=== PATIENT | female | born 1930 | race Caucasian/White ===

== ENCOUNTER → 2016-11-28 | Outpatient (CLI) | payer MEDICARE, BC ==
[2016-11-28 10:38] LABS: ABSOLUTE EOSINOPHILS # (AUTO) 0.1 10^3/uL (0.0-0.6); ABSOLUTE MONOCYTES (AUTO) 0.4 10^3/uL (0.1-1.4); ABSOLUTE NEUT (AUTO) 3.5 10^3/uL (1.7-8.2); BASOPHILS % (AUTO) 0.5 % (0-2); EOSINOPHILS % (AUTO) 2.2 % (0-6); HEMATOCRIT 42.6 % (36.0-47.0); HEMOGLOBIN 14.2 g/dL (12.0-15.5); LYMPHOCYTES % (AUTO) 19.2 % (13-45); MEAN CORPUSCULAR HEMOGLOBIN 31.9 pg (27.0-33.4); MEAN CORPUSCULAR HGB CONC 33.4 g/dL (32.0-36.0); MEAN CORPUSCULAR VOLUME 95 fl (80-97); MONOCYTES % (AUTO) 8.7 % (3-13); RED BLOOD COUNT 4.47 10^6/uL (3.72-5.28); SEGMENTED NEUTROPHILS % (AUTO) 69.4 % (42-78)
[2016-11-28 11:02] LABS: ALANINE AMINOTRANSFERASE 33 U/L (9-52); ALBUMIN 3.8 g/dL (3.5-5.0); ALKALINE PHOSPHATASE 80 U/L (38-126); ANION GAP 9 (5-19); ASPARTATE AMINO TRANSFERASE 33 U/L (14-36); BILIRUBIN,DIRECT 0.3 mg/dL (0.0-0.4); BILIRUBIN,TOTAL 0.9 mg/dL (0.2-1.3); BLOOD UREA NITROGEN 20 mg/dL (7-20); CALCIUM 10.2 mg/dL (8.4-10.2); CARBON DIOXIDE 25 mmol/L (22-30); CHLORIDE 109 mmol/L (98-107); GLUCOSE 94 mg/dL (75-110); POTASSIUM 3.9 mmol/L (3.6-5.0); SODIUM 143.4 mmol/L (137-145)
== END ==
LOC: OD 09:26
PROVIDERS: ATTEND Family Medicine Geriatric Medicine
DX: M47.24 Other spondylosis with radiculopathy, thoracic region (principal); I10 Essential (primary) hypertension; K21.0 Gastro-esophageal reflux disease with esophagitis; Z79.899 Other long term (current) drug therapy
CPT/HCPCS: 36415; 80053; 85025

== ENCOUNTER → 2017-01-01 | Outpatient (CLI) | payer MEDICARE, BC ==
--- NOTE | 2017-01-01 15:15 | RADIOLOGY REPORT (SQ) ---
EXAM DESCRIPTION: VENOUS BILATERAL LOWER COMPLETED DATE/TIME: 01/01/2017 2:39 pm REASON FOR STUDY: BLE PAIN, SWELLING M79.604 PAIN IN RIGHT LEG COMPARISON: None. TECHNIQUE: Dynamic and static marroquin scale and color images acquired of both lower extremity venous sy stems. Selected spectral images acquired with additional compression and augmentation maneuvers. Imag es stored on PACS. LIMITATIONS: None. FINDINGS: RIGHT LEG COMMON FEMORAL AND FEMORAL: Normal phasicity, compression and augmentation. No visualized echogenic m aterial on marroquin scale. No defects on color images. POPLITEAL: Normal compression and augmentation. No visualized echogenic material on marroquin scale. No de fects on color images. CALF VESSELS: Normal compression and augmentation. No visualized echogenic material on marroquin scale. No defects on color image. GSV AND SSV: Normal compression. No visualized echogenic material on marroquin scale. No defects on color images. ANY DEEP VENOUS INSUFFICIENCY: Not evaluated. ANY EVIDENCE OF POPLITEAL CYST: No. OTHER: No other significant finding. LEFT LEG COMMON FEMORAL AND FEMORAL: Normal phasicity, compression and augmentation. No visualized echogenic m aterial on marroquin scale. No defects on color images. POPLITEAL: Normal compression and augmentation. No visualized echogenic material on marroquin scale. No de fects on color images. CALF VESSELS: Normal compression and augmentation. No visualized echogenic material on marroquin scale. No defects on color images. GSV AND SSV: Normal compression. No visualized echogenic material on marroquin scale. No defects on color images. ANY DEEP VENOUS INSUFFICIENCY: Not evaluated. ANY EVIDENCE POPLITEAL CYST: No. OTHER: No other significant finding. IMPRESSION: NO EVIDENCE DVT OR SVT IN EITHER LEG. TECHNICAL DOCUMENTATION: JOB ID: [id number] [employer]- All Rights Reserved
== END ==
LOC: SP 13:48
PROVIDERS: ATTEND Internal Medicine
DX: M79.604 Pain in right leg (principal); M79.605 Pain in left leg; M79.89 Other specified soft tissue disorders
CPT/HCPCS: 93970

== ENCOUNTER 2017-01-03 18:22 | Emergency (ER) | payer MEDICARE, BC ==
--- NOTE | 2017-01-03 18:54 | ER Document Report ---
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 Patient was recently diagnosed with bilateral lower extremity cellulitis and placed on oral antibiotics (Augmentin) by Dr. Andrade. A venous Doppler as an outpatient performed 2 days ago showed no evidence of DVT. Patient presents today with concerns for worsening rash. The patient and the patient's friend states that the rash seems to have spread to the chest area and underneath the right breast. Patient denies any significant pain or swelling. Patient states that the left lower extremity has actually improved over the last day. TRAVEL OUTSIDE OF THE [place] IN LAST 30 DAYS: No - HPI Onset: Last week Onset/Duration: Gradual Quality of pain: No pain Severity: None Pain Level: Denies Associated Symptoms: None. denies: Chest pain, Fever, Shortness of breath Exacerbated by: Denies Relieved by: Denies Similar symptoms previously: No Recently seen / treated by doctor: No - Related Data Smoking: Non-smoker Frequency of alcohol use: None Drug Abuse: None Allergies/Adverse Reactions: Sulfa (Sulfonamide Antibiotics) Allergy (Verified 01/03/17 18:24) Past Medical History - General Information source: Patient - Social History Cigarette use (# per day): No Chew tobacco use (# tins/day): No Frequency of alcohol use: None Drug Abuse: None Lives with: Family Family history: None - Past Medical History Cardiac Medical History: Reports: Hx Hypertension Pulmonary Medical History: Reports: None EENT Medical History: Reports: None Neurological Medical History: Reports: Hx Cerebrovascular Accident Endocrine Medical History: Reports: None Renal/ Medical History: Reports: None. Denies: Hx Peritoneal Dialysis Malignancy Medical History: Reports: None GI Medical History: Reports: None Musculoskeltal Medical History: Reports Other Skin Medical History: Reports None Psychiatric Medical History: Reports: None Traumatic Medical History: Reports: None Infectious Medical History: Reports: None Surgical Hx: Other - noncontributory Review of Systems - Review of Systems Constitutional: denies: Chills, Fever EENT: No symptoms reported Cardiovascular: No symptoms reported Respiratory: No symptoms reported Gastrointestinal: No symptoms reported Genitourinary: No symptoms reported Female Genitourinary: No symptoms reported Musculoskeletal: See HPI Skin: See HPI Hematologic/Lymphatic: No symptoms reported Neurological/Psychological: No symptoms reported Physical Exam - Vital signs Vitals: Temp Pulse Resp BP Pulse Ox 98.4 F 81 18 175/79 H 97 01/03/17 18:24 01/03/17 18:24 01/03/17 18:24 01/03/17 18:24 01/03/17 18:24 Notes: Physical exam: GENERAL: 86-year-old female, alert and oriented 3, no acute distress. HEAD: Atraumatic, normocephalic. EYES: Pupils equal round and reactive to light, extraocular movements intact, sclera anicteric, conjunctiva are normal. ENT: TMs normal, nares patent, oropharynx clear without exudates. Moist mucous membranes. NECK: Normal range of motion, supple without lymphadenopathy or JVD. LUNGS: Breath sounds clear to auscultation bilaterally and equal. No wheezes rales or rhonchi. HEART: Regular rate and rhythm without murmurs, rubs or gallops. ABDOMEN: Soft, normoactive bowel sounds. No tenderness to palpation. No guarding, no rebound. No masses appreciated. EXTREMITIES: Patient does have evidence of chronic peripheral vascular disease of the lower extremities with some chronic edema. There is erythema to bilateral lower extremities with slight weeping from the left lower extremity. There is no significant increase in warmth of the lower extremities and there is no tenderness to palpation. Distal cap refill is good. NEUROLOGICAL: Cranial nerves II through XII grossly intact. Normal speech, normal gait. PSYCH: Normal mood, normal affect. SKIN: Patient does have maculopapular lesions to the right chest which goes across the chest and crosses midline. There is no erythema suggestive of cellulitis. The patient does have an erythematous plaque underneath the right breast that looks more fungal in nature. Course - Re-evaluation Re-evalutation: 01/03/17 20:49 Note: The patient's lower extremity skin changes look mostly chronic. She was placed on antibiotics [address] ANDRADE she has not had any. Fever or increased pain. The white blood count is normal. They were concerned because the rash seemed to spread. No rashes in the area of the chest that would be exposed to light she was out at a green party the other day and I am wondering whether she has got some sort of sun exposure dermatitis. I have asked her to follow-up with her customer development representative. There is one area that looks itchy and red underneath the right breast which is in the area that is mostly moist and looks more fungal and have given her cream. - Vital Signs Vital signs: Temp Pulse Resp BP Pulse Ox 98.4 F 67 19 150/71 H 99 01/03/17 18:24 01/03/17 20:41 01/03/17 20:41 01/03/17 20:41 01/03/17 20:41 - Laboratory Result Diagrams: 01/03/17 19:02 01/03/17 19:02 Laboratory results interpreted by me: 01/03/17 19:02 Lymphocytes % 12.3 L Doctor's Discharge - Discharge Clinical Impression: Cellulitis Qualifiers: Site of cellulitis of extremity: lower extremity Laterality: unspecified laterality Condition: Stable Disposition: HOME, SELF-CARE Additional Instructions: Far as the cellulitis to the lower extremities, continue with the antibiotics that Dr. Andrade has you on. It is okay to bathe and ipsom salts. Hibiclens soap once or twice a week is okay as well As far as the rash underneath the right breast: I wrote for an antifungal cream. You can apply this twice daily. I would like you to follow-up with Dr. HARVEY the customer development representative. Call the office on Thursday. Return to the emergency room for any concerns that the rash is getting worse. Prescriptions: Butenafine HCl [Lotrimin Ultra 1% Cream] 1 applic TP DAILY #1 tube
[2017-01-03 19:16] LABS: ABSOLUTE EOSINOPHILS # (AUTO) 0.2 10^3/uL (0.0-0.6); ABSOLUTE LYMPHOCYTES (AUTO) 0.6 10^3/uL (0.5-4.7); ABSOLUTE MONOCYTES (AUTO) 0.6 10^3/uL (0.1-1.4); ABSOLUTE NEUT (AUTO) 3.8 10^3/uL (1.7-8.2); BASOPHILS % (AUTO) 0.9 % (0-2); EOSINOPHILS % (AUTO) 2.9 % (0-6); HEMOGLOBIN 14.4 g/dL (12.0-15.5); HGB HCT DIFFERENCE 0.2; LYMPHOCYTES % (AUTO) 12.3 % (13-45); MEAN CORPUSCULAR HEMOGLOBIN 32.1 pg (27.0-33.4); MEAN CORPUSCULAR HGB CONC 33.5 g/dL (32.0-36.0); MEAN CORPUSCULAR VOLUME 96 fl (80-97); MONOCYTES % (AUTO) 10.8 % (3-13); RED BLOOD COUNT 4.48 10^6/uL (3.72-5.28); RED CELL DISTRIBUTION WIDTH 12.6 % (11.5-14.0); SEGMENTED NEUTROPHILS % (AUTO) 73.1 % (42-78); WHITE BLOOD COUNT 5.2 10^3/uL (4.0-10.5)
[2017-01-03 19:25] LABS: PROTHROMBIN TIME 13.4 SEC (11.4-15.4)
[2017-01-03 19:32] LABS: ANION GAP 8 (5-19); BLOOD UREA NITROGEN 19 mg/dL (7-20); CALCIUM 10.1 mg/dL (8.4-10.2); CARBON DIOXIDE 27 mmol/L (22-30); CHLORIDE 105 mmol/L (98-107); CREATININE RESULT 0.56 mg/dL (0.52-1.25); GLUCOSE 96 mg/dL (75-110); POTASSIUM 4.3 mmol/L (3.6-5.0); SODIUM 140.2 mmol/L (137-145)
[2017-01-03 20:45] VITALS: BP 150/71
== END 2017-01-03 20:41 | disposition home or self-care (01) ==
LOC: ER 18:22
DX: L03.116 Cellulitis of left lower limb (principal); L03.115 Cellulitis of right lower limb; L98.9 Disorder of the skin and subcutaneous tissue, unspecified; I10 Essential (primary) hypertension; I73.9 Peripheral vascular disease, unspecified; R60.0 Localized edema; Z88.2 Allergy status to sulfonamides
CPT/HCPCS: 36415; 80048; 85025; 85610; 99283

== ENCOUNTER → 2017-03-31 | Outpatient (CLI) | payer MEDICARE, BC ==
[2017-03-31 10:43] LABS: ALANINE AMINOTRANSFERASE 33 U/L (9-52); ANION GAP 5 (5-19); ASPARTATE AMINO TRANSFERASE 31 U/L (14-36); BLOOD UREA NITROGEN 22 mg/dL (7-20); CALCIUM 10.3 mg/dL (8.4-10.2); CARBON DIOXIDE 28 mmol/L (22-30); CHLORIDE 108 mmol/L (98-107); CREATININE RESULT 0.62 mg/dL (0.52-1.25); GLUCOSE 92 mg/dL (75-110); MAGNESIUM 2.2 mg/dL (1.6-2.3); POTASSIUM 4.1 mmol/L (3.6-5.0); SODIUM 141.2 mmol/L (137-145)
== END ==
LOC: OD 09:16
PROVIDERS: ATTEND Family Medicine Geriatric Medicine
DX: I10 Essential (primary) hypertension (principal); N39.41 Urge incontinence; E87.6 Hypokalemia; Z79.899 Other long term (current) drug therapy
CPT/HCPCS: 36415; 80048; 83735; 84450; 84460

== ENCOUNTER 2017-05-15 10:20 | Emergency (ER) | payer MEDICARE, BC ==
[2017-05-15] MEDS ORDERED: MUPIROCIN 2% OINTMENT 22 GM TP ONE (11:37)
--- NOTE | 2017-05-15 11:43 | ER Document Report ---
HPI - HPI Patient complains to provider of: 2 open sores to right leg Onset: Other - This week Onset/Duration: Gradual Quality of pain: No pain, Burning Severity: None Pain Level: Denies Associated Symptoms: Other - Open sores to the front and side of right leg Exacerbated by: Denies Relieved by: Denies Similar symptoms previously: Yes Recently seen / treated by doctor: Yes - ROS ROS below otherwise negative: Yes - CONSTITUTIONAL Constitutional: DENIES: Fever, Chills - EENT EENT: DENIES: Sore Throat, Ear Pain, Eye problems - NEURO Neurology: DENIES: Headache, Weakness, Vision blurred, Dizzinesss / Vertigo - CARDIOVASCULAR Cardiovascular: DENIES: Chest pain - RESPIRATORY Respiratory: DENIES: Trouble Breathing, Coughing - GASTROINTESTINAL Gastrointestinal: DENIES: Abdominal Pain, Black / Bloody Stools - URINARY Urinary: DENIES: Dysuria, Urgency, Frequency - REPRODUCTIVE Reproductive: REPORTS: Postmenopausal. DENIES: :, Abnormal bleeding / discharge - MUSCULOSKELETAL Musculoskeletal: REPORTS: Extremity pain - Open sores to the front and ba, Swelling - Pedal edema - DERM Skin Color: Normal Skin Problems: Open to Air - Open sores to front and side of right leg please address as instructed Past Medical History - General Information source: Patient - Social History Smoking Status: Never Smoker Chew tobacco use (# tins/day): No Smoking Education Provided: No Frequency of alcohol use: Rare Drug Abuse: None Lives with: Alone Family History: Reviewed & Not Pertinent Patient has suicidal ideation: No Patient has homicidal ideation: No - Past Medical History Cardiac Medical History: Reports: Hx Hypercholesterolemia, Hx Hypertension, Hx Peripheral Vascular Disease, Other - Venous insufficiency Pulmonary Medical History: Reports: None EENT Medical History: Reports: Eyes - Cataracts Neurological Medical History: Reports: Hx Cerebrovascular Accident Endocrine Medical History: Reports: None Renal/ Medical History: Reports: None Malignancy Medical History: Reports: None GI Medical History: Reports: None Musculoskeltal Medical History: Reports Hx Arthritis, Reports Hx Musculoskeletal Deformity Skin Medical History: Reports None Psychiatric Medical History: Reports: None Traumatic Medical History: Reports: None Infectious Medical History: Reports: None Past Surgical History: Reports: Hx Cholecystectomy, Hx Hysterectomy, Hx Orthopedic Surgery - bilat knee replacement, Other - Cataracts - Immunizations Hx Diphtheria, Pertussis, Tetanus Vaccination: Yes Vertical Provider Document - CONSTITUTIONAL Agree With Documented VS: Yes Exam Limitations: No Limitations General Appearance: WD/WN, No Apparent Distress - INFECTION CONTROL TRAVEL OUTSIDE OF THE [place] IN LAST 30 DAYS: No - HEENT HEENT: Atraumatic, Normal ENT Exam, Normocephalic - NECK Neck: Normal Inspection, Supple - RESPIRATORY Respiratory: Breath Sounds Normal, No Respiratory Distress O2 Sat by Pulse Oximetry: 96 - CARDIOVASCULAR Cardiovascular: Regular Rate, Regular Rhythm - GI/ABDOMEN Gastrointestinal: Abdomen Non-Tender, No Organomegaly, Normal Bowel Sounds - MUSCULOSKELETAL/EXTREMETIES Musculoskeletal/Extremeties: MAEW, FROM, Tender, Edema - Bilateral pedal edema - NEURO Level of Consciousness: Awake, Alert, Appropriate - DERM Integumentary: Warm, Dry, No Rash. negative: Laceration - Open area to the front and back of the right lower leg Course - Re-evaluation Re-evalutation: 05/15/17 11:43 Patient had her 2 open wounds cleaned with soap rinsed with saline patted dry and Bactroban applied to both. - Vital Signs Vital signs: Temp Pulse Resp BP Pulse Ox 97.9 F 84 19 165/79 H 96 05/15/17 10:29 05/15/17 10:29 05/15/17 10:29 05/15/17 10:29 05/15/17 10:29 Discharge - Discharge Clinical Impression: Open sores to right leg Condition: Stable Disposition: HOME, SELF-CARE Instructions: Family Physicians / Practices Additional Instructions: Please careful your open wounds as instructed below. SOAP CLEANSING: Gently wash the wound daily using a mild soap (like Ivory, Phisoderm, Neutrogena). Use warm water, rubbing gently until all debris, ooze, and crusting have been washed from the wound. Allow to dry briefly (about 10 minutes) after cleaning. Repeat this cleansing at least three times a day for the first two days and then once or twice a day. Bactroban Ointment Bactroban is very effective against the germs that cause infection within the skin. It's useful for impetigo and other superficial infections. Deeper infections require antibiotics by mouth or by shot. Apply the medicine three times a day for one week, or longer if your doctor has advised it. Stop the medicine and call your doctor if you develop large blisters, severe itching, increasing pain, swelling, fever, or spreading redness. FOLLOW-UP CARE: If you have been referred to a physician for follow-up care, call the physician s office for an appointment as you were instructed or within the next two days. If you experience worsening or a significant change in your symptoms, notify the physician immediately or return to the Emergency Department at any time for re-evaluation. Referrals: EILEEN AYALA MD [Primary Care Provider] - Follow up as needed
[2017-05-15 12:23] VITALS: BP 159/81
== END 2017-05-15 12:24 | disposition home or self-care (01) ==
LOC: ER 10:20
DX: L98.8 Other specified disorders of the skin and subcutaneous tissue (principal)
CPT/HCPCS: 99283; A9270; J3490

== ENCOUNTER → 2017-07-09 | Outpatient (CLI) | payer MEDICARE, BC ==
[2017-07-10 12:20] LABS: ANION GAP 10 (5-19); BLOOD UREA NITROGEN 19 mg/dL (7-20); CALCIUM 10.5 mg/dL (8.4-10.2); CARBON DIOXIDE 28 mmol/L (22-30); CHLORIDE 106 mmol/L (98-107); GLUCOSE 93 mg/dL (75-110); POTASSIUM 4.1 mmol/L (3.6-5.0); SODIUM 143.6 mmol/L (137-145)
== END ==
LOC: OD 10:33
PROVIDERS: ATTEND Family Medicine Geriatric Medicine
DX: E83.52 Hypercalcemia (principal); Z79.899 Other long term (current) drug therapy
CPT/HCPCS: 36415; 80048; 83970

== ENCOUNTER → 2017-07-23 | Outpatient (CLI) | payer MEDICARE, BC ==
--- NOTE | 2017-07-23 14:51 | RADIOLOGY REPORT (SQ) ---
EXAM DESCRIPTION: NM PARATHYROID IMAGING COMPLETED DATE/TIME: 07/23/2017 2:17 pm REASON FOR STUDY: ENDOCRINE DISORDER, UNSPECIFIED (E34.9), HYPERCALCEMIA (E83.52) E34.9 ENDOCRINE D ISORDER, UNSPECIFIED E83.52 HYPERCALCEMIA COMPARISON: None. RADIONUCLIDE AND DOSE: 21.6 millicuries Tc-99m Sestamibi. The route of agent administration: Intravenous ADDITIONAL DRUGS AND DOSES: None. TECHNIQUE: Early and delayed images of the neck acquired following radionuclide administration. LIMITATIONS: None. FINDINGS: Thyroid: Normal size. Homogeneous activity. Normal washout. No focal lesions. Parathyroid: Retained activity in the inferior left lobe on delayed imaging. Other: No other significant findings. IMPRESSION: RETAINED ACTIVITY IN THE INFERIOR LEFT LOBE OF THE THYROID CONSISTENT WITH PARATHYROID A DENOMA. TECHNICAL DOCUMENTATION: JOB ID: [id number] [employer] All Rights Reserved
== END ==
LOC: RAD 09:31
PROVIDERS: ATTEND Family Medicine Geriatric Medicine
DX: D11.0 Benign neoplasm of parotid gland (principal); D35.1 Benign neoplasm of parathyroid gland; E21.0 Primary hyperparathyroidism
CPT/HCPCS: 78070; A9500; Q9969

== ENCOUNTER → 2017-07-29 | Outpatient (CLI) | payer MEDICARE, BC ==
--- NOTE | 2017-07-29 17:10 | RADIOLOGY REPORT (SQ) ---
EXAM DESCRIPTION: KNEE LEFT 4 VIEWS COMPLETED DATE/TIME: 07/29/2017 4:54 pm REASON FOR STUDY: PAIN IN LEFT KNEE M54.5 LOW BACK PAIN M25.562 PAIN IN LEFT KNEE COMPARISON: None. NUMBER OF VIEWS: Four views. TECHNIQUE: AP, lateral, and both oblique radiographic images acquired of the left knee. LIMITATIONS: None. FINDINGS: MINERALIZATION: Normal. BONES: No acute fracture or dislocation. No worrisome bone lesions. Total knee replacement. Device appears well seated. JOINT: No effusion. SOFT TISSUES: No soft tissue swelling. No radio-opaque foreign body. OTHER: No other significant finding. IMPRESSION: Total knee replacement. No acute findings. Specifically no fracture. TECHNICAL DOCUMENTATION: JOB ID: [id number] [employer]- All Rights Reserved
--- NOTE | 2017-07-29 17:11 | RADIOLOGY REPORT (SQ) ---
EXAM DESCRIPTION: LUMBAR SPINE COMPLETE COMPLETED DATE/TIME: 07/29/2017 4:54 pm REASON FOR STUDY: LOW BACK PAIN M54.5 LOW BACK PAIN M25.562 PAIN IN LEFT KNEE COMPARISON: Sacrum and coccyx films same date NUMBER OF VIEWS: Five views including obliques. TECHNIQUE: AP, lateral, oblique, and sacral radiographic images acquired of the lumbar spine. LIMITATIONS: None. FINDINGS: MINERALIZATION: Osteoporotic SEGMENTATION: Normal. No transitional anatomy. ALIGNMENT: Minimal grade 1 anterolisthesis of L3 over L4 and L4 over L5, likely due to advanced facet arthropathy VERTEBRAE: Maintained height. No fracture or worrisome bone lesion. DISCS: Disc space loss of height with vacuum phenomenon at L2-3, L3-4, and L5-S1. POSTERIOR ELEMENTS: Multilevel facet arthropathy, most pronounced at L3-4, L4-5, and L5-S1 HARDWARE: Clips right upper quadrant post cholecystectomy PARASPINAL SOFT TISSUES: Heavy splenic artery calcification, age-appropriate PELVIS: Not well seen OTHER: No other significant finding. IMPRESSION: No plain film evidence of acute fracture TECHNICAL DOCUMENTATION: JOB ID: [id number] [employer]- All Rights Reserved
--- NOTE | 2017-07-29 17:11 | RADIOLOGY REPORT (SQ) ---
EXAM DESCRIPTION: SACRUM AND COCCYX COMPLETED DATE/TIME: 07/29/2017 4:54 pm REASON FOR STUDY: LOW BACK PAIN M54.5 LOW BACK PAIN M25.562 PAIN IN LEFT KNEE COMPARISON: None. NUMBER OF VIEWS: Three views. TECHNIQUE: AP, lateral, and tilt views of the sacrum and coccyx. LIMITATIONS: None. FINDINGS: MINERALIZATION: Osteopenia. BONES: No acute fracture or dislocation. No worrisome bone lesions. SOFT TISSUES: No soft tissue swelling. No foreign body. OTHER: Marked degenerative changes of the lower lumbar spine. IMPRESSION: NEGATIVE STUDY OF THE SACRUM AND COCCYX. TECHNICAL DOCUMENTATION: JOB ID: [id number] [employer]- All Rights Reserved
== END ==
LOC: OD 16:08
PROVIDERS: ATTEND Family Medicine Geriatric Medicine
DX: M54.5 Low back pain (principal); M25.562 Pain in left knee; Z96.652 Presence of left artificial knee joint
CPT/HCPCS: 72110; 72220

== ENCOUNTER 2017-08-10 11:14 | Inpatient (IN) | payer MEDICARE, BC ==
[2017-08-10] MEDS ORDERED: FENTANYL CITRATE INJ/PF 100 MCG/2 ML AMPUL IV ONE (11:22)
--- NOTE | 2017-08-10 12:03 | ER Document Report ---
ED General - General Chief Complaint: Leg Pain Stated Complaint: LEFT LEG PAIN Time Seen by Provider: 08/10/17 11:21 Mode of Arrival: Medic Information source: Patient Notes: [age]-year-old female history of hypertension hypercholesterolemia peripheral vascular disease presents after mechanical fall complaining of left hip pain. EMS notes shortened leg upon arrival patient refused pain medication TRAVEL OUTSIDE OF THE [place] IN LAST 30 DAYS: No - HPI Onset: Just prior to arrival Onset/Duration: Sudden Quality of pain: Achy Severity: Mild Pain Level: 1 Associated symptoms: Body/muscle aches Exacerbated by: Movement Relieved by: Denies Similar symptoms previously: No Recently seen / treated by doctor: No - Related Data Allergies/Adverse Reactions: Sulfa (Sulfonamide Antibiotics) Allergy (Verified 05/15/17 10:33) Past Medical History - Social History Smoking Status: Never Smoker Cigarette use (# per day): No Chew tobacco use (# tins/day): No Smoking Education Provided: No Family History: Reviewed & Not Pertinent - Past Medical History Cardiac Medical History: Reports: Hx Hypercholesterolemia, Hx Hypertension, Hx Peripheral Vascular Disease Neurological Medical History: Reports: Hx Cerebrovascular Accident Renal/ Medical History: Denies: Hx Peritoneal Dialysis Musculoskeltal Medical History: Reports Hx Arthritis, Reports Hx Musculoskeletal Deformity Past Surgical History: Reports: Hx Cholecystectomy, Hx Hysterectomy, Hx Orthopedic Surgery - bilat knee replacement, Other - Cataracts - Immunizations Hx Diphtheria, Pertussis, Tetanus Vaccination: Yes Review of Systems - Review of Systems Notes: REVIEW OF SYSTEMS: CONSTITUTIONAL : Denies fever, chills, or sweats. Denies recent illness. EENT: Denies eye, ear, throat, or mouth pain or symptoms. Denies nasal or sinus congestion or discharge. Denies throat, tongue, or mouth swelling or difficulty swallowing. CARDIOVASCULAR: Denies chest pain. Denies palpitations or racing or irregular heart beat. Denies ankle edema. RESPIRATORY: Denies cough, cold, or chest congestion. Denies shortness of breath, difficulty breathing, or wheezing. GASTROINTESTINAL: Denies abdominal pain or distention. Denies nausea, vomiting , or diarrhea. Denies blood in vomitus, stools, or per rectum. Denies black, tarry stools. Denies constipation. GENITOURINARY: Denies difficulty urinating, painful urination, burning, frequency, blood in urine, or discharge. FEMALE GENITOURINARY: Denies vaginal bleeding, heavy or abnormal periods, irregular periods. Denies vaginal discharge or odor. MUSCULOSKELETAL: Admits left hip pain. SKIN: Denies rash, lesions or sores. HEMATOLOGIC : Denies easy bruising or bleeding. LYMPHATIC: Denies swollen, enlarged glands. NEUROLOGICAL: Denies confusion or altered mental status. Denies passing out or loss of consciousness. Denies dizziness or lightheadedness. Denies headache. Denies weakness or paralysis or loss of use of either side. Denies problems with gait or speech. Denies sensory loss, numbness, or tingling. Denies seizures. PSYCHIATRIC: Denies anxiety or stress. Denies depression, suicidal ideation, or homicidal ideation. ALL OTHER SYSTEMS REVIEWED AND NEGATIVE. PHYSICAL EXAMINATION: GENERAL: Well-appearing, well-nourished and in no acute distress. HEAD: Atraumatic, normocephalic. EYES: Pupils equal round and reactive to light, extraocular movements intact, conjunctiva are normal. ENT: Nares patent, oropharynx clear without exudates. Moist mucous membranes. NECK: Normal range of motion, supple without lymphadenopathy LUNGS: Breath sounds clear to auscultation bilaterally and equal. No wheezes rales or rhonchi. HEART: Regular rate and rhythm without murmurs ABDOMEN: Soft, nontender, nondistended abdomen. No guarding, no rebound. No masses appreciated. Female : deferred Musculoskeletal: Left hip tenderness, left leg is shortened inverted. NEUROLOGICAL: Cranial nerves grossly intact. Normal speech, normal gait. Normal sensory, motor exams PSYCH: Normal mood, normal affect. SKIN: Warm, Dry, normal turgor, no rashes or lesions noted. Dictation was performed using [employer] voice recognition software Physical Exam - Vital signs Vitals: Temp Pulse Resp BP Pulse Ox 98.3 F 75 16 170/91 H 97 08/10/17 11:27 08/10/17 11:27 08/10/17 11:27 08/10/17 11:27 08/10/17 11:27 Course - Re-evaluation Re-evalutation: 08/10/17 13:57 Patient is noted to have intertrochanteric comminuted fracture patient will be admitted to the hospitalist service Dr. Bah has been notified 08/10/17 13:58 - Vital Signs Vital signs: Temp Pulse Resp BP Pulse Ox 98.3 F 75 16 170/91 H 97 08/10/17 11:27 08/10/17 11:27 08/10/17 11:27 08/10/17 11:27 08/10/17 11:27 - Laboratory Result Diagrams: 08/10/17 12:45 08/10/17 12:45 Laboratory results interpreted by me: 08/10/17 08/10/17 12:45 12:45 WBC 13.5 H Seg Neutrophils % 89.5 H Lymphocytes % 5.1 L Absolute Neutrophils 12.0 H Chloride 108 H BUN 23 H Calcium 11.1 H - Diagnostic Test Radiology reviewed: Image reviewed, Reports reviewed - EKG Interpretation by Me EKG shows normal: Sinus rhythm, Tatums, Intervals, QRS Complexes Discharge - Discharge Clinical Impression: Comminuted fracture of left hip Qualifiers: Encounter type: initial encounter Fracture type: closed Qualified Code(s): S72.092A - Other fracture of head and neck of left femur, initial encounter for closed fracture HTN (hypertension) Qualifiers: Hypertension type: essential hypertension Qualified Code(s): I10 - Essential ( primary) hypertension Condition: Stable Disposition: ADMITTED INPATIENT Admitting Provider: Hospitalist Unit Admitted: Telemetry Referrals: BRUCE AYALA MD [Primary Care Provider] - Follow up as needed
--- NOTE | 2017-08-10 12:59 | RADIOLOGY REPORT (SQ) ---
EXAM DESCRIPTION: HIP LEFT AP/LATERAL COMPLETED DATE/TIME: 08/10/2017 12:06 pm REASON FOR STUDY: fall hip injury COMPARISON: None. NUMBER OF VIEWS: Two views. TECHNIQUE: AP pelvis and additional AP and frog-leg view of the left hip. LIMITATIONS: None. FINDINGS: MINERALIZATION: Normal. LEFT HIP: Mildly displaced comminuted intertrochanteric fracture of the left hip. RIGHT HIP: No fracture or dislocation. No worrisome bone lesions. PUBIS AND ISCHIUM: No fracture. PELVIS: No fracture. SACRUM: No fracture or dislocation. No worrisome bone lesions. LOWER LUMBAR SPINE: No fracture or dislocation. No worrisome bone lesions. Moderate to severe degene rative disc disease. . SOFT TISSUES: No findings. OTHER: No other significant finding. IMPRESSION: Comminuted intertrochanteric fracture of the left hip. TECHNICAL DOCUMENTATION: JOB ID: [id number] [employer]- All Rights Reserved
[2017-08-10 13:06] LABS: ABSOLUTE EOSINOPHILS # (AUTO) 0.1 10^3/uL (0.0-0.6); ABSOLUTE LYMPHOCYTES (AUTO) 0.7 10^3/uL (0.5-4.7); ABSOLUTE MONOCYTES (AUTO) 0.7 10^3/uL (0.1-1.4); BASOPHILS % (AUTO) 0.2 % (0-2); EOSINOPHILS % (AUTO) 0.4 % (0-6); HEMOGLOBIN 14.5 g/dL (12.0-15.5); LYMPHOCYTES % (AUTO) 5.1 % (13-45); MEAN CORPUSCULAR HEMOGLOBIN 31.9 pg (27.0-33.4); MEAN CORPUSCULAR HGB CONC 33.6 g/dL (32.0-36.0); MEAN CORPUSCULAR VOLUME 95 fl (80-97); MONOCYTES % (AUTO) 4.8 % (3-13); PLATELET COUNT 193 10^3/uL (150-450); RED BLOOD COUNT 4.53 10^6/uL (3.72-5.28); RED CELL DISTRIBUTION WIDTH 12.7 % (11.5-14.0); SEGMENTED NEUTROPHILS % (AUTO) 89.5 % (42-78); TOTAL CELLS COUNTED % (AUTO) 100 %; WHITE BLOOD COUNT 13.5 10^3/uL (4.0-10.5)
[2017-08-10 13:23] LABS: ALANINE AMINOTRANSFERASE 42 U/L (9-52); ALKALINE PHOSPHATASE 80 U/L (38-126); ANION GAP 8 (5-19); ASPARTATE AMINO TRANSFERASE 34 U/L (14-36); BILIRUBIN,DIRECT 0.4 mg/dL (0.0-0.4); BILIRUBIN,TOTAL 0.8 mg/dL (0.2-1.3); BLOOD UREA NITROGEN 23 mg/dL (7-20); CALCIUM 11.1 mg/dL (8.4-10.2); CARBON DIOXIDE 26 mmol/L (22-30); CHLORIDE 108 mmol/L (98-107); GLUCOSE 92 mg/dL (75-110); POTASSIUM 3.8 mmol/L (3.6-5.0); SODIUM 142.2 mmol/L (137-145)
[2017-08-10] MEDS ORDERED: NORMAL SALINE 1000 ML 1,000 ML IV ONE (13:28)
[2017-08-10] MEDS ORDERED: ACETAMINOPHEN 325 MG TABLET PO PRN (13:58)
[2017-08-10] MEDS ORDERED: ZOLPIDEM TARTRATE 5 MG TABLET PO PRN (13:58)
[2017-08-10] MEDS ORDERED: NORMAL SALINE 1000 ML 1,000 ML IV PRN (13:58)
[2017-08-10] MEDS ORDERED: ONDANSETRON HCL INJ/PF 4 MG/2 ML SDV IV PRN (13:58)
--- NOTE | 2017-08-10 14:49 | RADIOLOGY REPORT (SQ) ---
EXAM DESCRIPTION: CHEST SINGLE VIEW COMPLETED DATE/TIME: 08/10/2017 2:20 pm REASON FOR STUDY: pre op COMPARISON: None. NUMBER OF VIEWS: One view. TECHNIQUE: Single frontal radiographic view of the chest acquired. LIMITATIONS: None. FINDINGS: LUNGS AND PLEURA: No opacities, masses or pneumothorax. No pleural effusion. MEDIASTINUM AND HILAR STRUCTURES: No masses. Contour normal. HEART AND VASCULAR STRUCTURES: Heart enlarged without failure. Normal vasculature. BONES: No acute findings. HARDWARE: None in the chest. OTHER: No other significant finding. IMPRESSION: HEART ENLARGED WITHOUT FAILURE. NO OTHER SIGNIFICANT RADIOGRAPHIC FINDING IN THE CHEST. TECHNICAL DOCUMENTATION: JOB ID: [id number] [employer]- All Rights Reserved
--- NOTE | 2017-08-10 14:57 | PDOC H&P ---
History of Present Illness Admission Date/PCP: 08/10/17 14:17 BRUCE AYALA MD Patient complains of: Pain in left hip after falling History of Present Illness: ALISHA OSORIO is a 87 year old female arrived To ED via ambulance. Patient states that she has been having fall spells. The last episode was last week and she ate her face. Had been falling backwards. Today she fell and afterwards was having problems ambulating. Luckily she had her life alert. Patient lives by herself. She has a history of a stroke back in . After the stroke she has been having some right-sided weakness and uses a cane. Patient admits as to having a history of high blood pressure. She denies myocardial infarction or stroke. Her children are spread throughout. There is 1 in [place], a second [address] [facility] and the third 1 in [facility]. Patient wishes to be DNR. Patient was evaluated in emergency room and found to have a left hip fracture. Dr. Moore was made aware. Our service was contacted for further management Past Medical History Cardiac Medical History: Reports: Hyperlipidema, Hypertension, Peripheral Vascular Disease Pulmonary Medical History: Reports: None EENT Medical History: Reports: None Neurological Medical History: Reports: None Endocrine Medical History: Reports: None Renal/ Medical History: Reports: None Malignancy Medical History: Reports: None GI Medical History: Reports: None Musculoskeltal Medical History: Reports: Arthritis Skin Medical History: Reports: None Psychiatric Medical History: Reports: None Traumatic Medical History: Reports: None Hematology: Reports: None Infectious Medical History: Reports: None Past Surgical History Past Surgical History: Reports: Cholecystectomy, Hysterectomy, Orthopedic Surgery - bilat knee replacement, Other - Cataracts Social History Information Source: Patient Smoking Status: Never Smoker Frequency of Alcohol Use: None Hx Recreational Drug Use: No Drugs: None Hx Prescription Drug Abuse: No - Advance Directive Resuscitation Status: Do Not Resuscitate Family History Family History: Hypertension Parental Family History Reviewed: Yes Children Family History Reviewed: Yes Sibling(s) Family History Reviewed.: Yes Medication/Allergy Home Medications: Butenafine HCl [Lotrimin Ultra 1% Cream] 1 applic TP DAILY #1 tube 01/03/17 Carbamide Peroxide [Debrox 6.5 % Otic Drops 15 ml] 1 drop OU DAILY 05/15/17 Clopidogrel Bisulfate [Clopidogrel] 75 mg PO DAILY 05/15/17 Fluticasone Propionate [Flonase Nasal [place] 50 Mcg/[place] 16 gm] 1 spray NASL DAILY 05/15/17 Gabapentin [Gabapentin] 300 mg PO BID 05/15/17 Losartan Potassium [Losartan Potassium] 25 mg PO DAILY 05/15/17 Allergies/Adverse Reactions: Sulfa (Sulfonamide Antibiotics) Allergy (Verified 05/15/17 10:33) Review of Systems Constitutional: ABSENT: fatigue, fever(s), headache(s) Eyes: ABSENT: visual disturbances Ears: ABSENT: hearing changes Cardiovascular: ABSENT: dyspnea on exertion, edema, orthropnea Respiratory: ABSENT: cough Gastrointestinal: ABSENT: abdominal pain, nausea, vomiting Neurological: PRESENT: frequent falls Physical Exam Vital Signs: Temp Pulse Resp BP Pulse Ox 98.3 F 75 16 170/91 H 97 08/10/17 11:27 08/10/17 11:27 08/10/17 11:27 08/10/17 11:27 08/10/17 11:27 General appearance: PRESENT: no acute distress, cooperative, obese Head exam: PRESENT: atraumatic, normocephalic Eye exam: PRESENT: conjunctiva pink, EOMI, PERRLA Ear exam: PRESENT: normal external ear exam, TM's normal bilaterally Mouth exam: PRESENT: moist, neck supple Neck exam: PRESENT: full ROM. ABSENT: JVD, lymphadenopathy, tenderness Respiratory exam: PRESENT: clear to auscultation radames. ABSENT: tachypnea, unlabored Cardiovascular exam: PRESENT: RRR, systolic murmur. ABSENT: diastolic murmur Vascular exam: PRESENT: normal capillary refill GI/Abdominal exam: PRESENT: normal bowel sounds, soft. ABSENT: tenderness Extremities exam: PRESENT: tenderness. ABSENT: full ROM Musculoskeletal exam: ABSENT: ambulatory Neurological exam: PRESENT: alert, awake, oriented to person, oriented to place , oriented to time, oriented to situation, CN II-XII grossly intact Psychiatric exam: PRESENT: appropriate affect, normal mood Skin exam: PRESENT: intact, normal color Results Impressions: Hip X-Ray 08/10/17 11:21 IMPRESSION: Comminuted intertrochanteric fracture of the left hip. Assessment & Plan - Diagnosis (1) Heart murmur Is this a current diagnosis for this admission?: Yes Plan: Will order an echocardiogram since she does acknowledge history of heart murmur (2) Comminuted fracture of left hip Qualifiers: Encounter type: initial encounter Fracture type: closed Qualified Code(s) : S72.092A - Other fracture of head and neck of left femur, initial encounter for closed fracture Is this a current diagnosis for this admission?: Yes Plan: Patient to be admitted under the hospitalist service. Dr. Bah had been made aware about patient's condition and will proceed to extend the consult. To provide pain control. For DVT prophylaxis SCD and after surgery contemplated to place the patient on Xarelto (3) HTN (hypertension) Qualifiers: Hypertension type: essential hypertension Qualified Code(s): I10 - Essential (primary) hypertension Is this a current diagnosis for this admission?: Yes Plan: Continue outpatient regimen (4) Recurrent falls while walking Is this a current diagnosis for this admission?: Yes Plan: Patient has been having frequent falls. She lives by herself. She was made aware that he may get to be dangerous for her to stay by herself. Family is coming advised her to have a talk with them. (5) History of CVA with residual deficit Is this a current diagnosis for this admission?: Yes Plan: Patient has long-standing right-sided weakness after she had the fall and requires ambulation with a cane which certainly can contribute to her unsteadiness - Time Time Spent: 50 to 70 Minutes Medications reviewed and adjusted accordingly: Yes Anticipated discharge: Acute Rehab Within: within 72 hours - Inpatient Certification Based on my medical assessment, after consideration of the patient's comorbidities, presenting symptoms, or acuity I expect that the services needed warrant INPATIENT care.: Yes I certify that my determination is in accordance with my understanding of Medicare's requirements for reasonable and necessary INPATIENT services [42 CFR 412.3e].: Yes Medical Necessity: Need Close Monitoring Due to Risk of Patient Decompensation, Need for Pain Control, Need for Surgery
--- NOTE | 2017-08-10 15:19 | EKG REPORT ---
SEVERITY:- ABNORMAL ECG - SINUS RHYTHM PROBABLE LEFT ATRIAL ABNORMALITY RBBB AND LAFB : Confirmed by: Cheyanne Hernandez 10-Aug-2017 15:18:46
--- NOTE | 2017-08-10 18:40 | XCELERA REPORT ---
[address] [address] Transthoracic Echocardiogram Report Name: ALISHA OSORIO Age: 87 yrs Gender: Female : 1930 Patient Status: Inpatient [address] Study Date: 08/10/2017 02:25 PM Height: 61 in Weight: 135 lb BSA: 1.6 m2 Procedure: A complete two-dimensional transthoracic echocardiogram was performed (2D, M-mode, spectral and color flow Doppler). The study was technically adequate with some images being suboptimal in quality. Reason For Study: preop Ordering Physician: ADIN CHURCHILL Performed By: Zuleyma Massey Interpretation Summary The left ventricular ejection fraction is normal. Doppler measurements suggest pseudonormalized left ventricular relaxation, which is associated with grade II/IV or mild to moderate diastolic dysfunction There is borderline concentric left ventricular hypertrophy. The left ventricle is grossly normal size. Wall motion cannot be accurately commented on, but no definite regional wall motion abnormalities noted. The right ventricular systolic function is normal. The right atrium is normal. The left atrial size is normal. There is a mild amount of mitral regurgitation There is no mitral valve stenosis. There is a mild to moderate amount of aortic regurgitation There is no aortic valve stenosis There is a mild to moderate amount of tricuspid regurgitation There is mild to moderate pulmonary hypertension by echo Right ventricular systolic pressure is estimated to be elevated at 40- 50mmHg. The aortic root is not well visualized but is probably normal size. The inferior vena cava appeared normal and decreased > 50% with respiration (RAP 5-10 mmHg) Minimal pericardial effusion. MMode/2D Measurements & Calculations RVDd: 3.1 cm LVIDd: 4.5 cm FS: 41.5 % Ao root diam: 3.4 cm IVSd: 0.82 cm LVIDs: 2.6 cm EDV(Teich): 90.8 ml LVPWd: 0.93 cmESV(Teich): 24.9 ml Ao root area: 9.0 cm2 EF(Teich): 72.6 % LA dimension: 3.3 cm LVOT diam: 1.8 cm LVOT area: 2.5 cm2 Doppler Measurements & Calculations MV E max alyssa: MV P1/2t max alyssa: Ao V2 max: AI max alyssa: 62.2 cm/sec 62.7 cm/sec 224.0 cm/sec 529.9 cm/sec MV A max alyssa: MV P1/2t: 41.2 msec Ao max PG: AI max P.0 cm/sec MVA(P1/2t): 5.3 cm2 20.1 mmHg 112.3 mmHg MV E/A: 0.56 MV dec slope: ESTIVEN(V,D): 2.0 cm2 AI dec slope: 445.7 cm/sec2 398.4 cm/sec2 AI P1/2t: 389.6 msec LV V1 max PG: PA V2 max: TR max alyssa: 12.7 mmHg 107.1 cm/sec 329.8 cm/sec LV V1 max: PA max P.6 mmHg TR max P.3 cm/sec 43.5 mmHg Left Ventricle The left ventricle is grossly normal size. There is borderline concentric left ventricular hypertrophy. The left ventricular ejection fraction is normal. Doppler measurements suggest pseudonormalized left ventricular relaxation, which is associated with grade II/IV or mild to moderate diastolic dysfunction. Wall motion cannot be accurately commented on, but no definite regional wall motion abnormalities noted. Right Ventricle The right ventricle is grossly normal size. There is normal right ventricular wall thickness. The right ventricular systolic function is normal. Atria The right atrium is normal. The left atrial size is normal. Interarterial septum not well visualized and not well dopplered. Cannot comment on ASD/PFO presence. Mitral Valve There is mild mitral annular calcification. There is no mitral valve stenosis. There is a mild amount of mitral regurgitation. Aortic Valve The aortic valve is grossly normal. There is no aortic valve stenosis. There is a mild to moderate amount of aortic regurgitation. Tricuspid Valve The tricuspid valve is not well visualized, but is grossly normal. There is no tricuspid stenosis. There is a mild to moderate amount of tricuspid regurgitation. There is mild to moderate pulmonary hypertension by echo. Right ventricular systolic pressure is estimated to be elevated at 40- 50mmHg. Pulmonic Valve The pulmonic valve is not well visualized. Great Vessels The aortic root is not well visualized but is probably normal size. The inferior vena cava appeared normal and decreased > 50% with respiration (RAP 5-10 mmHg). Effusions Minimal pericardial effusion. : ADIN CHURCHILL > Cheyanne Hernandez
[2017-08-10] MEDS: HYDROMORPHONE HCL INJ/PF 2 MG/ML AMPULE IV PRN (21:11)
[2017-08-10] MEDS ORDERED: GABAPENTIN 100 MG CAPSULE PO SCH (22:00)
--- NOTE | 2017-08-10 23:01 | PDOC CONSULTATION ---
Consultation Consult Date: 08/10/17 Attending physician:: DEREK PASCUAL Consult reason:: Pre op clearence History of Present Illness Admission Date/PCP: 08/10/17 14:17 BRUCE AYALA MD Patient complains of: L hip phone History of Present Illness: ALISHA OSORIO is a 87 year old female arrived To ED via ambulance. Patient states that she has been having fall spells. The last episode was last week and she hit her face. Had been falling backwards. Today she fell and afterwards was having problems ambulating. Luckily she had her life alert. Patient lives by herself. She has a history of a stroke back in . After the stroke she has been having some right-sided weakness and uses a cane. Patient admits as to having a history of high blood pressure. She denies myocardial infarction or stroke. Her children are spread throughout. There is 1 in [place], a second 1 in [facility] and the third 1 in [facility]. Patient wishes to be DNR. Patient was evaluated in emergency room and found to have a left hip fracture. Dr. Moore was made aware. Our service was contacted for further management. This history was reviewed, supplemented and confirmed. Pt daughter from [place] is here, at bed side. Past Medical History Cardiac Medical History: Reports: Hyperlipidema, Hypertension, Peripheral Vascular Disease Pulmonary Medical History: Reports: None EENT Medical History: Reports: None Neurological Medical History: Reports: None Endocrine Medical History: Reports: None Renal/ Medical History: Reports: None Malignancy Medical History: Reports: None GI Medical History: Reports: None Musculoskeltal Medical History: Reports: Arthritis Skin Medical History: Reports: None Psychiatric Medical History: Reports: None Denies: Depression Traumatic Medical History: Reports: None Hematology: Reports: None Infectious Medical History: Reports: None Past Surgical History Past Surgical History: Reports: Cholecystectomy, Hysterectomy, Orthopedic Surgery - bilat knee replacement, Other - Cataracts Social History Information Source: Patient Smoking Status: Never Smoker Frequency of Alcohol Use: None Hx Recreational Drug Use: No Drugs: None Hx Prescription Drug Abuse: No - Advance Directive Resuscitation Status: Do Not Resuscitate Family History Family History: Hypertension Parental Family History Reviewed: Yes Children Family History Reviewed: Yes Sibling(s) Family History Reviewed.: Yes Medication/Allergy Home Medications: Gabapentin [Neurontin 300 mg Capsule] 300 mg PO DAILY 08/10/17 Gabapentin [Neurontin 300 mg Capsule] 600 mg PO QHS 08/10/17 Losartan Potassium [Cozaar 25 mg Tablet] 25 mg PO DAILY 08/10/17 Tolterodine Tartrate [Detrol LA] 4 mg PO DAILY 08/10/17 Aspirin [Aspirin 325 mg Tablet] 325 mg PO DAILY tablet 08/14/17 Collagenase Clostridium Hist. [Santyl Ointment 30 gm] 1 applic TOP DAILY tube 08/14/17 Ferrous Sulfate [Feosol 325 mg Tablet] 325 mg PO BIDPCBS tablet 08/14/17 Lactulose [Cephulac Syrup 20 gm/30 ml Udcup] 20 gm PO QHS udc 08/14/17 Polyethylene Glycol 3350 [Miralax Powder 17 gm/Packet] 17 gm PO DAILY powd.pack 08/14/17 Rivaroxaban [Xarelto 10 mg Tablet] 10 mg PO DAILY #1 tablet 08/14/17 Allergies/Adverse Reactions: Sulfa (Sulfonamide Antibiotics) Allergy (Verified 05/15/17 10:33) Review of Systems Constitutional: ABSENT: chills, fever(s), headache(s), weight gain, weight loss Eyes: ABSENT: visual disturbances Ears: ABSENT: hearing changes Nose, Mouth, and Throat: ABSENT: as per HPI, headache(s), mouth pain, sore throat, vertigo, other Breasts: ABSENT: as per HPI, other Cardiovascular: ABSENT: chest pain, dyspnea on exertion, edema, orthropnea, palpitations Respiratory: ABSENT: cough, hemoptysis Gastrointestinal: ABSENT: abdominal pain, constipation, diarrhea, hematemesis, hematochezia, nausea, vomiting Genitourinary: ABSENT: dysuria, hematuria Musculoskeletal: ABSENT: joint swelling Integumentary: ABSENT: rash, wounds Neurological: PRESENT: other - R lower extremity weakness.. ABSENT: abnormal gait, abnormal speech, confusion, dizziness, syncope Psychiatric: ABSENT: anxiety, depression, homidical ideation, suicidal ideation Endocrine: ABSENT: cold intolerance, heat intolerance, polydipsia, polyuria Hematologic/Lymphatic: ABSENT: easy bleeding, easy bruising Physical Exam Vital Signs: Temp Pulse Resp BP Pulse Ox 98.3 F 75 16 170/91 H 97 08/10/17 11:27 08/10/17 11:27 08/10/17 11:27 08/10/17 11:27 08/10/17 11:27 General appearance: PRESENT: no acute distress, well-developed, well-nourished Head exam: PRESENT: atraumatic, normocephalic Eye exam: PRESENT: conjunctiva pink, EOMI, PERRLA. ABSENT: scleral icterus Ear exam: PRESENT: normal external ear exam Mouth exam: PRESENT: moist, tongue midline Throat exam: ABSENT: post pharyngeal erythema, tonsillar erythema, tonsillar exudate, tonsillogmegaly, other Neck exam: ABSENT: carotid bruit, JVD, lymphadenopathy, thyromegaly Respiratory exam: PRESENT: clear to auscultation radames. ABSENT: rales, rhonchi, wheezes Cardiovascular exam: PRESENT: RRR, systolic murmur - 2/6 SARA Aortic area. ABSENT: diastolic murmur, rubs Pulses: PRESENT: normal carotid pulses, normal dorsalis pedis pul, +2 pedal pulses bilateral Vascular exam: PRESENT: normal capillary refill GI/Abdominal exam: PRESENT: normal bowel sounds, soft. ABSENT: distended, guarding, mass, organolmegaly, rebound, tenderness Rectal exam: PRESENT: deferred Extremities exam: PRESENT: full ROM. ABSENT: calf tenderness, clubbing, pedal edema Musculoskeletal exam: PRESENT: other - Left hip fracture Neurological exam: PRESENT: alert, awake, oriented to person, oriented to place , oriented to time, oriented to situation, CN II-XII grossly intact. ABSENT: motor sensory deficit Psychiatric exam: PRESENT: appropriate affect, normal mood. ABSENT: homicidal ideation, suicidal ideation Skin exam: PRESENT: dry, intact, warm. ABSENT: cyanosis, rash Results EKG Comments: NSR, RBBB Impressions: Hip X-Ray 08/10/17 11:21 IMPRESSION: Comminuted intertrochanteric fracture of the left hip. Chest X-Ray 08/10/17 13:27 IMPRESSION: HEART ENLARGED WITHOUT FAILURE. NO OTHER SIGNIFICANT RADIOGRAPHIC FINDING IN THE CHEST. Assessment & Plan - Diagnosis (1) Comminuted fracture of left hip Qualifiers: Encounter type: initial encounter Fracture type: closed Qualified Code(s) : S72.092A - Other fracture of head and neck of left femur, initial encounter for closed fracture Is this a current diagnosis for this admission?: Yes (2) HTN (hypertension) Qualifiers: Hypertension type: essential hypertension Qualified Code(s): I10 - Essential (primary) hypertension Is this a current diagnosis for this admission?: Yes (3) Heart murmur Is this a current diagnosis for this admission?: Yes (4) History of CVA with residual deficit Is this a current diagnosis for this admission?: Yes (5) Recurrent falls while walking Is this a current diagnosis for this admission?: Yes - Notes Notes: 2 D Echo to evaluate heart murmur. Addendum : 2 D Echo reviewed, No significant stenotic lesion noted. There are no contraindications to surgery. Rec DVT prophylaxis, Pulm toilet, good pain control. Patient is elderly and quite debilitated. However I do not see any contraindication. Discussed with family members and other involved medical personnel. Management plans reviewed. Recommend cardiac monitoring for 24-48 hours, twelve-lead EKG postop. Orders entered in the chart. - Time Time Spent: 30 to 50 Minutes - CODE STATUS : was discussed, patient remains DO NOT RESUSCITATE. Surrogate decision-maker patient's children. Multiple medical problems were addressed. More than 50% of the time spent coordinating care, discussing management plans with involved caregivers. Management plans discussed with involved personnels. Medical decision making was of moderate to high complexity, patient's has multiple comorbidities. Medications reviewed and adjusted accordingly: Yes
[2017-08-11] MEDS: GABAPENTIN 300 MG CAPSULE PO SCH ×3 (00:22→21:15)
[2017-08-11 07:40] LABS: ABSOLUTE EOSINOPHILS # (AUTO) 0.2 10^3/uL (0.0-0.6); ABSOLUTE LYMPHOCYTES (AUTO) 0.9 10^3/uL (0.5-4.7); ABSOLUTE MONOCYTES (AUTO) 0.8 10^3/uL (0.1-1.4); ABSOLUTE NEUT (AUTO) 4.4 10^3/uL (1.7-8.2); BASOPHILS % (AUTO) 0.4 % (0-2); EOSINOPHILS % (AUTO) 2.5 % (0-6); HEMATOCRIT 35.4 % (36.0-47.0); LYMPHOCYTES % (AUTO) 13.9 % (13-45); MEAN CORPUSCULAR HEMOGLOBIN 32.1 pg (27.0-33.4); MEAN CORPUSCULAR HGB CONC 34.3 g/dL (32.0-36.0); MEAN CORPUSCULAR VOLUME 94 fl (80-97); MONOCYTES % (AUTO) 12.8 % (3-13); PLATELET COUNT 148 10^3/uL (150-450); RED BLOOD COUNT 3.78 10^6/uL (3.72-5.28); RED CELL DISTRIBUTION WIDTH 12.7 % (11.5-14.0); SEGMENTED NEUTROPHILS % (AUTO) 70.4 % (42-78); TOTAL CELLS COUNTED % (AUTO) 100 %; WHITE BLOOD COUNT 6.3 10^3/uL (4.0-10.5)
[2017-08-11 07:41] LABS: HEMOGLOBIN 12.2 g/dL (12.0-15.5)
[2017-08-11] MEDS ORDERED: GLUCAGON,HUMAN RECOMB 1 MG INJ SUBCUT PRN (07:42)
[2017-08-11] MEDS ORDERED: DEXTROSE 50%-WATER 25 GM/50 ML DISP.SYRIN IV PRN ×2 (07:42)
[2017-08-11] MEDS ORDERED: DEXTROSE 40% GEL 15 GM TUBE PO PRN ×2 (07:42)
[2017-08-11 07:52] LABS: BLOOD UREA NITROGEN 19 mg/dL (7-20); CALCIUM 9.5 mg/dL (8.4-10.2); GLUCOSE 96 mg/dL (75-110); POTASSIUM 3.6 mmol/L (3.6-5.0)
[2017-08-11 08:07] LABS: CARBON DIOXIDE 30 mmol/L (22-30); CHLORIDE 108 mmol/L (98-107); SODIUM 139.6 mmol/L (137-145)
[2017-08-11 08:10] LABS: ANION GAP 2 (5-19)
[2017-08-11] MEDS: HYDROMORPHONE HCL INJ/PF 2 MG/ML AMPULE IV PRN ×2 (08:16→21:08)
[2017-08-11] MEDS: LOSARTAN POTASSIUM 25 MG TABLET PO SCH (09:26)
--- NOTE | 2017-08-11 09:29 | EKG REPORT ---
SEVERITY:- ABNORMAL ECG - SINUS RHYTHM VENTRICULAR PREMATURE COMPLEX FIRST DEGREE AV BLOCK RBBB AND LAFB PROBABLE LEFT VENTRICULAR HYPERTROPHY : Confirmed by: Cheyanne Hernandez 11-Aug-2017 09:28:13
[2017-08-11] MEDS: FLUTICASONE NASAL SPRAY 50 MCG/SPRY 120 SPRAY/16 GM NASL SCH (09:30)
[2017-08-11] MEDS: DOCUSATE SODIUM 100 MG CAPSULE PO SCH (09:30)
--- NOTE | 2017-08-11 09:31 | PDOC CONSULTATION ---
History of Present Illness Admission Date/PCP: 08/10/17 14:17 BRUCE AYALA MD History of Present Illness: ALISHA OSORIO is a 87 year old female arrived To ED via ambulance. Patient states that she has been having fall spells. The last episode was last week and she hit her face. Had been falling backwards. Today she fell and afterwards and patient was unable to ambulate. She has history of right-sided weakness secondary to stroke and requires a cane for ambulation. Currently she states her pain is controlled but worse with any motion. Denies numbness or tingling in the left lower extremity. Pain currently 3/10. Past Medical History Cardiac Medical History: Reports: Hyperlipidema, Hypertension, Peripheral Vascular Disease Pulmonary Medical History: Reports: None EENT Medical History: Reports: None Neurological Medical History: Reports: None Endocrine Medical History: Reports: None Renal/ Medical History: Reports: None Malignancy Medical History: Reports: None GI Medical History: Reports: None Musculoskeltal Medical History: Reports: Arthritis Skin Medical History: Reports: None Psychiatric Medical History: Reports: None Denies: Depression Traumatic Medical History: Reports: None Hematology: Reports: None Infectious Medical History: Reports: None Past Surgical History Past Surgical History: Reports: Cholecystectomy, Hysterectomy, Orthopedic Surgery - bilat knee replacement, Other - Cataracts Social History Smoking Status: Never Smoker Frequency of Alcohol Use: None Hx Recreational Drug Use: No Drugs: None Hx Prescription Drug Abuse: No - Advance Directive Resuscitation Status: Do Not Resuscitate Family History Family History: Hypertension Parental Family History Reviewed: No Children Family History Reviewed: No Sibling(s) Family History Reviewed.: No Medication/Allergy Home Medications: Clopidogrel Bisulfate [Plavix 75 mg Tablet] 75 mg PO DAILY 08/10/17 Gabapentin [Neurontin 300 mg Capsule] 300 mg PO DAILY 08/10/17 Gabapentin [Neurontin 300 mg Capsule] 600 mg PO QHS 08/10/17 Losartan Potassium [Cozaar 25 mg Tablet] 25 mg PO DAILY 08/10/17 Tolterodine Tartrate [Detrol LA] 4 mg PO DAILY 08/10/17 Allergies/Adverse Reactions: Sulfa (Sulfonamide Antibiotics) Allergy (Verified 05/15/17 10:33) Review of Systems All systems: as per PMH Constitutional: ABSENT: chills, fever(s), headache(s), weight gain, weight loss Eyes: ABSENT: visual disturbances Ears: ABSENT: hearing changes Cardiovascular: ABSENT: chest pain, dyspnea on exertion, edema, orthropnea, palpitations Respiratory: ABSENT: cough, hemoptysis Gastrointestinal: ABSENT: abdominal pain, constipation, diarrhea, hematemesis, hematochezia, nausea, vomiting Genitourinary: ABSENT: dysuria, hematuria Musculoskeletal: PRESENT: as per HPI Integumentary: ABSENT: rash, wounds Neurological: PRESENT: frequent falls. ABSENT: abnormal gait, abnormal speech, confusion, dizziness, focal weakness, syncope Psychiatric: ABSENT: anxiety, depression, homidical ideation, suicidal ideation Endocrine: ABSENT: cold intolerance, heat intolerance, menstrual abnormalities, polydipsia, polyuria Hematologic/Lymphatic: ABSENT: easy bleeding, easy bruising, lymphadenopathy Physical Exam Vital Signs: Temp Pulse Resp BP Pulse Ox 98.6 F 82 20 117/59 L 98 08/11/17 03:32 08/11/17 03:32 08/11/17 03:32 08/11/17 03:32 08/11/17 03:32 Intake & Output 08/10/17 08/11/17 08/12/17 06:59 06:59 06:59 Intake Total 0 Output Total 400 Balance -400 Weight 63.8 kg General appearance: PRESENT: no acute distress, well-developed, well-nourished Head exam: PRESENT: atraumatic, normocephalic, other - ecchymosis of the left orbit. Eye exam: PRESENT: conjunctiva pink, EOMI, PERRLA. ABSENT: scleral icterus Ear exam: PRESENT: normal external ear exam Mouth exam: PRESENT: moist, tongue midline Neck exam: PRESENT: full ROM. ABSENT: carotid bruit, JVD, lymphadenopathy, thyromegaly Cardiovascular exam: PRESENT: RRR. ABSENT: diastolic murmur, rubs, systolic murmur Pulses: PRESENT: normal dorsalis pedis pul, +2 pedal pulses bilateral Vascular exam: PRESENT: normal capillary refill GI/Abdominal exam: PRESENT: normal bowel sounds, soft. ABSENT: distended, guarding, mass, organolmegaly, rebound, tenderness Rectal exam: PRESENT: deferred Musculoskeletal exam: PRESENT: other - Right LE: Short ER, + Log roll, intact PF /DF, No sensory deficits. Dorsalis pedis pulse 2+. Previous knee replacement noted. No evidence of effusion or tenderness to palpation. Difficult examination of the knee secondary to patient's hip fracture. Neurological exam: PRESENT: alert, awake, oriented to person, oriented to place , oriented to time, oriented to situation, abnormal gait, CN II-XII grossly intact, other - Right lower extremity weakness. ABSENT: motor sensory deficit Psychiatric exam: PRESENT: appropriate affect, normal mood. ABSENT: homicidal ideation, suicidal ideation Skin exam: PRESENT: dry, intact, warm. ABSENT: cyanosis, rash Results Laboratory Results: 08/11/17 07:12 08/11/17 07:12 08/11/17 08/11/17 07:12 07:12 WBC 6.3 RBC 3.78 Hgb 12.2 D Hct 35.4 L MCV 94 MCH 32.1 MCHC 34.3 RDW 12.7 Plt Count 148 L Seg Neutrophils % 70.4 Lymphocytes % 13.9 Monocytes % 12.8 Eosinophils % 2.5 Basophils % 0.4 Absolute Neutrophils 4.4 Absolute Lymphocytes 0.9 Absolute Monocytes 0.8 Absolute Eosinophils 0.2 Absolute Basophils 0.0 Sodium 139.6 Potassium 3.6 Chloride 108 H Carbon Dioxide 30 Anion Gap 2 L BUN 19 Creatinine 0.56 Est GFR ( Amer) > 60 Est GFR (Non-Af Amer) > 60 Glucose 96 Calcium 9.5 Magnesium 2.0 Impressions: Hip X-Ray 08/10/17 11:21 IMPRESSION: Comminuted intertrochanteric fracture of the left hip. Chest X-Ray 08/10/17 13:27 IMPRESSION: HEART ENLARGED WITHOUT FAILURE. NO OTHER SIGNIFICANT RADIOGRAPHIC FINDING IN THE CHEST. Status: Image reviewed by me - I have reviewed patient's radiographs which demonstrate left comminuted intertrochanteric/basicervical fracture. Assessment & Plan - Diagnosis (1) Fracture, intertrochanteric, left femur Qualifiers: Encounter type: initial encounter Fracture type: closed Fracture alignment: displaced Qualified Code(s): S72.142A - Displaced intertrochanteric fracture of left femur, initial encounter for closed fracture Is this a current diagnosis for this admission?: Yes Plan: Patient sustained a left intertrochanteric fracture. Given the patient's ambulatory status preoperatively I have recommended operative intervention with final goal to achieve ambulation and pain control. Risks and benefits of the surgical procedure have been explained to the patient and daughter sitting at bedside. Risks include anesthetic complications, excessive bleeding, infection , injury to surrounding nerves, vessels and tendons, bruising, healing difficulties, scar formation, posttraumatic arthritis and any unforseen complication. Patient and daughter have verbalized understanding and consented for the procedure. Plan will be to proceed with left hip cephalo-medullary nail intertrochanteric fracture. Pending medical optimization.
--- NOTE | 2017-08-11 13:10 | PDOC PROGRESS REPORT ---
Subjective Progress Note for:: 08/11/17 Subjective:: The patient is a pleasant 87-year-old female who was admitted to the hospital with a comminuted left hip fracture. She is scheduled to go to the operating room this afternoon. She has had a 2D echocardiogram as she was found to have a heart murmur on exam. Her echocardiogram results are unremarkable. Today when I saw the patient she states that when she lies still she does not have too much pain. She is having a little bit of pain in the left groin. She denies fever chills. No chest pain, shortness of breath or cough. No nausea, vomiting or diarrhea. No urinary complaints. Reason For Visit: LEFT HIP FRACTURE Physical Exam Vital Signs: Temp Pulse Resp BP Pulse Ox 98.7 F 76 14 147/73 H 93 08/11/17 07:59 08/11/17 07:59 08/11/17 07:59 08/11/17 07:59 08/11/17 07:59 Intake & Output 08/10/17 08/11/17 08/12/17 06:59 06:59 06:59 Intake Total 0 Output Total 400 Balance -400 Weight 63.8 kg General appearance: PRESENT: no acute distress, well-developed, well-nourished Head exam: PRESENT: atraumatic, normocephalic Mouth exam: PRESENT: moist, tongue midline Neck exam: ABSENT: carotid bruit, JVD, lymphadenopathy, thyromegaly Respiratory exam: PRESENT: clear to auscultation radames. ABSENT: rales, rhonchi, wheezes Cardiovascular exam: PRESENT: RRR, +S1, +S2, systolic murmur GI/Abdominal exam: PRESENT: normal bowel sounds, soft. ABSENT: distended, guarding, mass, organolmegaly, rebound, tenderness Rectal exam: PRESENT: deferred Extremities exam: PRESENT: calf tenderness Neurological exam: PRESENT: alert, awake, oriented to person, oriented to place , oriented to time, oriented to situation, CN II-XII grossly intact. ABSENT: motor sensory deficit Psychiatric exam: PRESENT: appropriate affect, normal mood. ABSENT: homicidal ideation, suicidal ideation Skin exam: PRESENT: dry, intact, warm. ABSENT: cyanosis, rash Results Laboratory Results: 08/11/17 07:12 08/11/17 07:12 08/11/17 08/11/17 07:12 07:12 WBC 6.3 RBC 3.78 Hgb 12.2 D Hct 35.4 L MCV 94 MCH 32.1 MCHC 34.3 RDW 12.7 Plt Count 148 L Seg Neutrophils % 70.4 Lymphocytes % 13.9 Monocytes % 12.8 Eosinophils % 2.5 Basophils % 0.4 Absolute Neutrophils 4.4 Absolute Lymphocytes 0.9 Absolute Monocytes 0.8 Absolute Eosinophils 0.2 Absolute Basophils 0.0 Sodium 139.6 Potassium 3.6 Chloride 108 H Carbon Dioxide 30 Anion Gap 2 L BUN 19 Creatinine 0.56 Est GFR ( Amer) > 60 Est GFR (Non-Af Amer) > 60 Glucose 96 Calcium 9.5 Magnesium 2.0 Impressions: Hip X-Ray 08/10/17 11:21 IMPRESSION: Comminuted intertrochanteric fracture of the left hip. Chest X-Ray 08/10/17 13:27 IMPRESSION: HEART ENLARGED WITHOUT FAILURE. NO OTHER SIGNIFICANT RADIOGRAPHIC FINDING IN THE CHEST. Assessment & Plan - Diagnosis (1) Comminuted fracture of left hip Qualifiers: Encounter type: initial encounter Fracture type: closed Qualified Code(s) : S72.092A - Other fracture of head and neck of left femur, initial encounter for closed fracture Is this a current diagnosis for this admission?: Yes Plan: She will go to the operating room today for repair. Further plan of care per orthopedic surgery. I am going to place her on prophylactic Xarelto to start after her surgery. (2) Heart murmur Is this a current diagnosis for this admission?: Yes Plan: 2D echocardiogram did not reveal any acute issues. She is stable for surgery (3) HTN (hypertension) Qualifiers: Hypertension type: essential hypertension Qualified Code(s): I10 - Essential (primary) hypertension Is this a current diagnosis for this admission?: Yes Plan: Stable (4) Recurrent falls while walking Is this a current diagnosis for this admission?: Yes Plan: She will require subacute rehabilitation at discharge. (5) History of CVA with residual deficit Is this a current diagnosis for this admission?: Yes Plan: No current active issues. She is on Plavix as an outpatient. This is been held for her surgery. - Time Time Spent with patient: 15-24 minutes Anticipated discharge: Other - Subacute rehab Disposition: Depending on her postoperative course I am hopeful she will be stable for subacute rehabilitation in the next 48 hours. - Inpatient Certification Medical Necessity: Other - The patient is going to the operating room today. Timing of disposition will be determined by her postoperative course. She will be requiring pain control
[2017-08-11] MEDS ORDERED: ONDANSETRON HCL INJ/PF 4 MG/2 ML SDV ONE (16:15)
[2017-08-11] MEDS ORDERED: EPHEDRINE SULFATE INJ 50 MG/1 ML AMPULE ONE (16:15)
[2017-08-11] MEDS ORDERED: HYDROMORPHONE HCL INJ/PF 2 MG/ML AMPULE ONE (16:16)
[2017-08-11] MEDS ORDERED: PROPOFOL INJ 200 MG/20 ML VIAL IV ONE (16:16)
[2017-08-11] MEDS ORDERED: CEFAZOLIN INJ 1 GM VIAL ONE (16:47)
[2017-08-11] MEDS ORDERED: FENTANYL CITRATE INJ/PF 100 MCG/2 ML AMPUL IV PRN ×3 (17:15)
[2017-08-11] MEDS ORDERED: ONDANSETRON HCL INJ/PF 4 MG/2 ML SDV IV PRN (17:15)
[2017-08-11] MEDS ORDERED: DIPHENHYDRAMINE HCL 50 MG/ML VIAL IV PRN (17:15)
[2017-08-11] MEDS ORDERED: RINGERS SOLUTION,LACTATED 1,000 ML IV PRN (17:48)
--- NOTE | 2017-08-11 17:48 | Operative Report ---
Operative Report DATE OF SURGERY: 08/11/17 PREOPERATIVE DIAGNOSIS: Left comminuted intertrochanteric hip fracture. POSTOPERATIVE DIAGNOSIS: Same OPERATION: Left cephalo-medullary nail intertrochanteric hip fracture SURGEON: ANTONIO CHILDERS ANESTHESIA: GA COMPLICATIONS: None ESTIMATED BLOOD LOSS: 75 cc PROCEDURE: Indication for above procedure: 87-year-old female who is a community ambulator sustained a fall onto her left hip. Patient has had previous history of multiple falls recently. Radiographs demonstrated intertrochanteric hip fracture. Patient was found medically optimized for operative intervention and orthopedic was consulted. I discussed treatment options with the patient including operative versus nonoperative intervention. Risks and benefits were explained patient and patient's family verbalized understanding consented for the procedure. Procedure in detail: Patient was seen and evaluated in the preoperative holding area. The left lower extremity was initialized and marked. Patient received 2 g Ancef IV for bacterial prophylaxis. Patient was taken back to the operative room where transferred operative table. Patient was placed under spinal anesthesia. Once adequate anesthetized he was carefully placed onto the hip positioner the nonoperative lower extremity and bilateral upper extremities were carefully padded and the peroneal nerve was padded and on the nonoperative extremity. The operative extremity was placed in a traction along with adduction and internal rotation. A surgical team debriefing was performed ensuring all instrumentation was available, the surgical procedure was discussed with possible concerns reviewed. A timeout was done identifying correct patient, procedure and extremity everyone in attendance agree with this and verbalized no concerns. Reduction maneuver with the use of the hip traction table were done and C-arm fluoroscopy was used to confirm optimal reduction of the intertrochanteric fracture. Once this was confirmed the lower extremity was prepped with chlor prep and draped in a sterile fashion. At this point a small skin incision was made proximal to the greater trochanter. The guidewire was placed onto the tip of the trochanter advanced down to the level of the lesser trochanter. AP and lateral fluoroscopy was used to confirm appropriate placement of the guidewire. The skin incision was then extended and the underlying fascia opened up carefully to the tip of the greater trochanter. The entry reamer was then used and advanced to the level of the lesser trochanter. At this point Yasmine short gamma nail was opened up and placed onto the aiming arm and advanced down the shaft of the femur. AP and lateral fluoroscopy was then used to confirm appropriate placement of the nail. Then turned my attention to the compression screw fixation in the femoral head. The trochars were advanced to the skin, a skin incision was made, careful dissection down to the fascia to the lateral femoral cortex was then partaken. The guidewire was then used and placed in the center center position with the tip apex distance less than 25 mm. Once this position was obtained the size of the compression screw was measured. AP and lateral fluoroscopy used to confirm appropriate placement of our guide wire. The step reamer was used to drill up through the femoral neck and head. I then carefully advanced the compression screw into position. AP and lateral fluoroscopy was done to confirm appropriate placement of the compression screw this was then locked into position proximally. The compression screw was then disengaged from its mounting device and the guidewire was removed. Lastly proceeded with locking of the nail distally. Using the aiming arm the trochars were advanced to the skin, a skin incision was made. Careful dissection done with a hemostat to the lateral cortex of the femur. I then drilled the near and far cortices. Measured the appropriate sized distal locking screw and secured it into position. At this point AP/lateral and oblique views of the proximal and distal aspect of the nail were taken confirming appropriate placement of the compression screw, distal locking screw and intramedullary nail. Once this was confirmed I proceeded with copious irrigation of the proximal and distal wounds. The deep tissues were closed with 0 Vicryl suture, subcutaneous tissues were closed with 3-0 Monocryl suture. The skin was closed a running 3-0 subcuticular Monocryl suture and reinforced with Dermabond & Steri-Strips. A dressing was placed. Sponge counts, instrument counts and needle counts were correct. Patient was then transferred from the operating room table to the operating room stretcher. The was no intraoperative complications patient tolerated procedure well was stable to PACU. Implants used: [place] 11 x 180 mm 125 Short Gamma Nail with a 90 mm compression screw Postoperative plan: Patient will begin physical therapy on postop day #1 with Xarelto daily.
--- NOTE | 2017-08-11 17:55 | RADIOLOGY REPORT (SQ) ---
EXAM DESCRIPTION: NO CHG FLUORO; HIP LEFT AP/LATERAL COMPLETED DATE/TIME: 08/11/2017 5:45 pm REASON FOR STUDY: ORIF LT HIP NAILING COMPARISON: 08/10/2017 FLUOROSCOPY TIME: 1 minutes 5 images saved to PACS. TECHNIQUE: Intra-operative images acquired during surgical procedure to evaluate progress. NUMBER OF IMAGES: 5 LIMITATIONS: None. FINDINGS: Internal fixation intertrochanteric fracture the left femur. IMPRESSION: IMAGE(S) OBTAINED DURING PROCEDURE. COMMENT: Quality ID [id number]: Final reports for procedures using fluoroscopy that document radiation exp osure indices, or exposure time and number of fluorographic images (if radiation exposure indices are not available) Please consult full operative report of the attending physician for description of the procedure. TECHNICAL DOCUMENTATION: JOB ID: [id number] [employer]- All Rights Reserved
--- NOTE | 2017-08-11 17:55 | RADIOLOGY REPORT (SQ) ---
EXAM DESCRIPTION: NO CHG FLUORO; HIP LEFT AP/LATERAL COMPLETED DATE/TIME: 08/11/2017 5:45 pm REASON FOR STUDY: ORIF LT HIP NAILING COMPARISON: 08/10/2017 FLUOROSCOPY TIME: 1 minutes 5 images saved to PACS. TECHNIQUE: Intra-operative images acquired during surgical procedure to evaluate progress. NUMBER OF IMAGES: 5 LIMITATIONS: None. FINDINGS: Internal fixation intertrochanteric fracture the left femur. IMPRESSION: IMAGE(S) OBTAINED DURING PROCEDURE. COMMENT: Quality ID [id number]: Final reports for procedures using fluoroscopy that document radiation exp osure indices, or exposure time and number of fluorographic images (if radiation exposure indices are not available) Please consult full operative report of the attending physician for description of the procedure. TECHNICAL DOCUMENTATION: JOB ID: [id number] [employer]- All Rights Reserved
[2017-08-11] MEDS: RIVAROXABAN 10 MG TABLET PO SCH (18:09)
--- NOTE | 2017-08-11 19:48 | PDOC PROGRESS REPORT ---
Subjective Progress Note for:: 08/11/17 Subjective:: Patient was seen early in the morning. 2D echo which was performed late yesterday was reviewed. Patient noted to have mild to moderate aortic incompetence and mild to moderate mitral regurgitation with relatively well- preserved LVEF. Patient has been chest pain-free. Patient was therefore cleared for surgery. Reason For Visit: LEFT HIP FRACTURE Physical Exam Vital Signs: Temp Pulse Resp BP Pulse Ox 98.2 F 84 18 117/71 94 08/11/17 18:46 08/11/17 18:46 08/11/17 18:46 08/11/17 18:46 08/11/17 18:46 Intake & Output 08/10/17 08/11/17 08/12/17 06:59 06:59 06:59 Intake Total 0 1400 Output Total 400 1125 Balance -400 275 Weight 63.8 kg Exam: GENERAL: well-nourished and in no acute distress. Patient is alert but not oriented to place time or person. HEAD: Atraumatic, normocephalic. EYES: Pupils equal round and reactive to light, extraocular movements intact, sclera anicteric, conjunctiva are normal. ENT: TMs normal, nares patent, oropharynx clear without exudates. Moist mucous membranes. No oral ulcerations or bleeding gums noted NECK: supple without lymphadenopathy or JVD. Trachea is central. No cervical or axillary lymphadenopathy noted. Carotids are 2+ LUNGS: Breath sounds bibasilar fine crackles at bases. No significant dullness noted. CHEST: Palpation of chest wall shows no significant chest wall tenderness. HEART: [place] VALIDATION ARCHITECT, No PSH, 2/6 SARA aortic area, 1/6 smith systolic murmur mitral area, rubs or gallops. ABDOMEN: Soft, no significant tenderness appreciated, normoactive bowel sounds. No guarding, no rebound. No rigidity noted . No masses appreciated. EXTREMITIES: Pedal pulses are 1-2+, no calf tenderness noted, Trace + pedal edema noted. No clubbing or cyanosis. NEUROLOGICAL: Patient is alert but is not able to participate in neurological exam because of patient's current mental status PSYCH: Patient cannot participate in a neurologic and psych exam because of the patient's current mental status SKIN: No significant ecchymosis, rash, ulcerations or signs of pruritus noted. MUSCULOSKELETAL EXAM: No significant joint swelling noted. Findings of left hip fracture noted Results Laboratory Results: 08/11/17 07:12 08/11/17 07:12 08/11/17 08/11/17 07:12 07:12 WBC 6.3 RBC 3.78 Hgb 12.2 D Hct 35.4 L MCV 94 MCH 32.1 MCHC 34.3 RDW 12.7 Plt Count 148 L Seg Neutrophils % 70.4 Lymphocytes % 13.9 Monocytes % 12.8 Eosinophils % 2.5 Basophils % 0.4 Absolute Neutrophils 4.4 Absolute Lymphocytes 0.9 Absolute Monocytes 0.8 Absolute Eosinophils 0.2 Absolute Basophils 0.0 Sodium 139.6 Potassium 3.6 Chloride 108 H Carbon Dioxide 30 Anion Gap 2 L BUN 19 Creatinine 0.56 Est GFR ( Amer) > 60 Est GFR (Non-Af Amer) > 60 Glucose 96 Calcium 9.5 Magnesium 2.0 EKG Comments: Twelve-lead EKG reviewed showed no acute ST-T changes. Occasional VPCs noted. Impressions: Chest X-Ray 08/10/17 13:27 IMPRESSION: HEART ENLARGED WITHOUT FAILURE. NO OTHER SIGNIFICANT RADIOGRAPHIC FINDING IN THE CHEST. Fluoroscopy 08/11/17 00:00 IMPRESSION: IMAGE(S) OBTAINED DURING PROCEDURE. Hip X-Ray 08/11/17 00:00 IMPRESSION: IMAGE(S) OBTAINED DURING PROCEDURE. Assessment & Plan - Diagnosis (1) Comminuted fracture of left hip Qualifiers: Encounter type: initial encounter Fracture type: closed Qualified Code(s) : S72.092A - Other fracture of head and neck of left femur, initial encounter for closed fracture Is this a current diagnosis for this admission?: Yes (2) HTN (hypertension) Qualifiers: Hypertension type: essential hypertension Qualified Code(s): I10 - Essential (primary) hypertension Is this a current diagnosis for this admission?: Yes (3) Heart murmur Is this a current diagnosis for this admission?: Yes (4) History of CVA with residual deficit Is this a current diagnosis for this admission?: Yes (5) Recurrent falls while walking Is this a current diagnosis for this admission?: Yes (6) Valvular heart disease Is this a current diagnosis for this admission?: Yes - Notes Notes: Patient cleared from cardiac standpoint with somewhat above average risk because of advanced age. There are no contraindication to proceeding with surgery. Valvular heart disease could be followed as an outpatient. This is felt to be mild to moderate and can be followed conservatively at this point. Patient remains a DNR. Will repeat a post stage op EKG tomorrow. - Time Time with patient: 15-25 minutes - CODE STATUS : was discussed, patient remains DO NOT RESUSCITATE. Surrogate decision-maker unchanged. Multiple medical problems were addressed. More than 50% of the time spent coordinating care, discussing management plans with involved caregivers. Management plans discussed with involved personnels. Medical decision making was of moderate to high complexity, patient's has multiple comorbidities. Medications reviewed and adjusted accordingly: Yes
[2017-08-11] MEDS: CEFAZOLIN 2 GM/D5W RTU 2 GM/50 ML RTUPB IV SCH (21:15)
[2017-08-11] MEDS ORDERED: RIVAROXABAN 10 MG TABLET PO SCH (22:00)
[2017-08-12 00:01] LABS: APPEARANCE,URINE CLOUDY; BILIRUBIN,URINE NEGATIVE (NEGATIVE); COLOR,URINE AMBER; GLUCOSE, URINE 50 mg/dL (NEGATIVE); KETONES,URINE TRACE mg/dL (NEGATIVE); LEUKOCYTE ESTERASE,URINE MODERATE (NEGATIVE); NITRITE,URINE NEGATIVE (NEGATIVE); PROTEIN,URINE 100 mg/dL (NEGATIVE); URINE SPECIFIC GRAVITY 1.039; UROBILINOGEN,URINE NEGATIVE mg/dL (<2.0)
[2017-08-12] MEDS: CEFAZOLIN 2 GM/D5W RTU 2 GM/50 ML RTUPB IV SCH ×4 (02:28→21:54)
[2017-08-12] MEDS ORDERED: CEFTRIAXONE 1 GM/D5W RTU 1 GM/50 ML RTUPB IV SCH (03:00)
[2017-08-12 05:17] LABS: HEMATOCRIT 26.5 % (36.0-47.0); MEAN CORPUSCULAR HEMOGLOBIN 32.8 pg (27.0-33.4); MEAN CORPUSCULAR HGB CONC 34.9 g/dL (32.0-36.0); MEAN CORPUSCULAR VOLUME 94 fl (80-97); PLATELET COUNT 117 10^3/uL (150-450); RED BLOOD COUNT 2.83 10^6/uL (3.72-5.28); RED CELL DISTRIBUTION WIDTH 12.7 % (11.5-14.0); WHITE BLOOD COUNT 8.6 10^3/uL (4.0-10.5)
[2017-08-12 05:19] LABS: HEMOGLOBIN 9.3 g/dL (12.0-15.5)
[2017-08-12 05:22] LABS: BLOOD UREA NITROGEN 22 mg/dL (7-20); CALCIUM 8.9 mg/dL (8.4-10.2); CARBON DIOXIDE 26 mmol/L (22-30); CHLORIDE 108 mmol/L (98-107); GLUCOSE 112 mg/dL (75-110); POTASSIUM 4.2 mmol/L (3.6-5.0); SODIUM 138.4 mmol/L (137-145)
[2017-08-12 05:42] LABS: ANION GAP 4 (5-19)
[2017-08-12] MEDS: OXYCODONE-ACETAMINOPHEN 5-325 MG TABLET PO PRN (08:57)
--- NOTE | 2017-08-12 09:31 | EKG REPORT ---
SEVERITY:- ABNORMAL ECG - SINUS RHYTHM NONSPECIFIC IVCD WITH LAD LEFT VENTRICULAR HYPERTROPHY ANTERIOR Q WAVES, POSSIBLY DUE TO LVH : Confirmed by: Cheyanne Hernandez 12-Aug-2017 09:30:23
[2017-08-12] MEDS ORDERED: RINGERS SOLUTION,LACTATED 1,000 ML IV PRN (09:55)
[2017-08-12] MEDS: LOSARTAN POTASSIUM 25 MG TABLET PO SCH (10:06)
[2017-08-12] MEDS: FLUTICASONE NASAL SPRAY 50 MCG/SPRY 120 SPRAY/16 GM NASL SCH (10:06)
[2017-08-12] MEDS: GABAPENTIN 300 MG CAPSULE PO SCH ×2 (10:07→21:54)
[2017-08-12] MEDS: DOCUSATE SODIUM 100 MG CAPSULE PO SCH (10:07)
[2017-08-12 11:59] LABS: ANION GAP 6 (5-19); BLOOD UREA NITROGEN 21 mg/dL (7-20); CALCIUM 8.9 mg/dL (8.4-10.2); CARBON DIOXIDE 22 mmol/L (22-30); CHLORIDE 105 mmol/L (98-107); GLUCOSE 161 mg/dL (75-110); POTASSIUM 3.9 mmol/L (3.6-5.0)
[2017-08-12] MEDS ORDERED: LEVOFLOXACIN 500 MG/D5W RTU 500 MG/100 ML RTUPB IV SCH (12:00)
--- NOTE | 2017-08-12 16:40 | PDOC PROGRESS REPORT ---
Subjective Progress Note for:: 08/12/17 Subjective:: Patient complains of itchiness to the right and left forearm. Accordingly she has seen a retail wireless associate who had prescribed different creams for each arm. Also she would like to have treatment for the ulcer in her right lower leg Reason For Visit: LEFT HIP FRACTURE Physical Exam Vital Signs: Temp Pulse Resp BP Pulse Ox 98.0 F 84 20 93/54 L 95 08/12/17 04:08 08/12/17 04:08 08/12/17 04:08 08/12/17 04:08 08/12/17 04:08 Intake & Output 08/10/17 08/11/17 08/12/17 06:59 06:59 06:59 Intake Total 0 1850 Output Total 400 1125 Balance -400 725 Weight 63.8 kg General appearance: PRESENT: cooperative, obese Head exam: PRESENT: atraumatic, normocephalic Eye exam: PRESENT: conjunctiva pink, EOMI, PERRLA Ear exam: PRESENT: normal external ear exam Mouth exam: PRESENT: moist Neck exam: PRESENT: full ROM. ABSENT: JVD, lymphadenopathy, tenderness Respiratory exam: PRESENT: clear to auscultation radames Cardiovascular exam: PRESENT: RRR, systolic murmur. ABSENT: diastolic murmur Vascular exam: PRESENT: normal capillary refill GI/Abdominal exam: PRESENT: normal bowel sounds, soft. ABSENT: tenderness Extremities exam: PRESENT: full ROM, +1 edema Musculoskeletal exam: PRESENT: ambulatory Neurological exam: PRESENT: alert, awake, oriented to person, oriented to place , oriented to time, oriented to situation Psychiatric exam: PRESENT: appropriate affect, normal mood Skin exam: PRESENT: normal color, other - There is an ulcer noted to right lower extremity measuring 1.51 cm with overlying fibrin. No discharge noted. No obvious deformities noted to right and left forearm but dry skin Results Laboratory Results: 08/12/17 04:54 08/12/17 04:54 08/11/17 08/11/17 08/11/17 07:12 07:12 23:15 WBC 6.3 RBC 3.78 Hgb 12.2 D Hct 35.4 L MCV 94 MCH 32.1 MCHC 34.3 RDW 12.7 Plt Count 148 L Seg Neutrophils % 70.4 Lymphocytes % 13.9 Monocytes % 12.8 Eosinophils % 2.5 Basophils % 0.4 Absolute Neutrophils 4.4 Absolute Lymphocytes 0.9 Absolute Monocytes 0.8 Absolute Eosinophils 0.2 Absolute Basophils 0.0 Sodium 139.6 Potassium 3.6 Chloride 108 H Carbon Dioxide 30 Anion Gap 2 L BUN 19 Creatinine 0.56 Est GFR ( Amer) > 60 Est GFR (Non-Af Amer) > 60 Glucose 96 Calcium 9.5 Magnesium 2.0 Urine Color MARTÍNEZ Urine Appearance CLOUDY Urine pH 5.0 Ur Specific [place] 1.039 Urine Protein 100 H Urine Glucose (UA) 50 H Urine Ketones TRACE H Urine Blood LARGE H Urine Nitrite NEGATIVE Ur Leukocyte Esterase MODERATE H Urine WBC (Auto) >182 Urine RBC (Auto) >182 08/12/17 08/12/17 04:54 04:54 WBC 8.6 RBC 2.83 L Hgb 9.3 L D Hct 26.5 L MCV 94 MCH 32.8 MCHC 34.9 RDW 12.7 Plt Count 117 L Seg Neutrophils % Lymphocytes % Monocytes % Eosinophils % Basophils % Absolute Neutrophils Absolute Lymphocytes Absolute Monocytes Absolute Eosinophils Absolute Basophils Sodium 138.4 Potassium 4.2 Chloride 108 H Carbon Dioxide 26 Anion Gap 4 L BUN 22 H Creatinine 0.54 Est GFR ( Amer) > 60 Est GFR (Non-Af Amer) > 60 Glucose 112 H Calcium 8.9 Magnesium 1.9 Urine Color Urine Appearance Urine pH Ur Specific [place] Urine Protein Urine Glucose (UA) Urine Ketones Urine Blood Urine Nitrite Ur Leukocyte Esterase Urine WBC (Auto) Urine RBC (Auto) Impressions: Chest X-Ray 08/10/17 13:27 IMPRESSION: HEART ENLARGED WITHOUT FAILURE. NO OTHER SIGNIFICANT RADIOGRAPHIC FINDING IN THE CHEST. Fluoroscopy 08/11/17 00:00 IMPRESSION: IMAGE(S) OBTAINED DURING PROCEDURE. Hip X-Ray 08/11/17 00:00 IMPRESSION: IMAGE(S) OBTAINED DURING PROCEDURE. Assessment & Plan - Diagnosis (1) Heart murmur Is this a current diagnosis for this admission?: Yes Plan: Daughter is at bedside and states that patient does have a history of a leaky valve. Echocardiogram noted and there is some aortic regurgitation (2) Comminuted fracture of left hip Qualifiers: Encounter type: initial encounter Fracture type: closed Qualified Code(s) : S72.092A - Other fracture of head and neck of left femur, initial encounter for closed fracture Is this a current diagnosis for this admission?: Yes Plan: Had surgery yesterday and doing great. Continue Xarelto for DVT prophylaxis (3) HTN (hypertension) Qualifiers: Hypertension type: essential hypertension Qualified Code(s): I10 - Essential (primary) hypertension Is this a current diagnosis for this admission?: Yes Plan: Will hold off outpatient regimen she is on the low side and concerned that he may relate to blood loss (4) Recurrent falls while walking Is this a current diagnosis for this admission?: Yes Plan: Patient has been having frequent falls. She lives by herself. She was made aware that he may get to be dangerous for her to stay by herself. Daughter is at bedside and made him aware that her mother may not be able to stay by herself due to recurrent falls. Is my understanding that they are anticipating for patient to get rehab in [facility] and which will give them time to make arrangements for her further disposition (5) History of CVA with residual deficit Is this a current diagnosis for this admission?: Yes Plan: Patient has long-standing right-sided weakness after she had the fall and requires ambulation with a cane which certainly can contribute to her unsteadiness (6) UTI (urinary tract infection) Qualifiers: Hematuria presence: with hematuria Is this a current diagnosis for this admission?: Yes Plan: Patient is already on cefazolin having signs of a urinary tract infection. To discontinue Fernandez and place patient on Levaquin will track urine culture result (7) Ulcer of right leg Qualifiers: Non-pressure ulcer stage: limited to breakdown of skin Qualified Code(s): L97.911 - Non-pressure chronic ulcer of unspecified part of right lower leg limited to breakdown of skin Is this a current diagnosis for this admission?: Yes Plan: Asked nurse to apply Santyl to ulcer of right leg. - Time Time Spent with patient: 15-24 minutes Medications reviewed and adjusted accordingly: Yes Anticipated discharge: Acute Rehab Within: within 72 hours - Inpatient Certification Based on my medical assessment, after consideration of the patient's comorbidities, presenting symptoms, or acuity I expect that the services needed warrant INPATIENT care.: Yes I certify that my determination is in accordance with my understanding of Medicare's requirements for reasonable and necessary INPATIENT services [42 CFR 412.3e].: Yes Medical Necessity: Need Close Monitoring Due to Risk of Patient Decompensation, Need for Pain Control, Need for IV Antibiotics
--- NOTE | 2017-08-12 17:58 | PDOC PROGRESS REPORT ---
Subjective Progress Note for:: 08/12/17 Subjective:: Patient's pain is well controlled. Patient was able to get up with therapy. Reason For Visit: LEFT HIP FRACTURE Physical Exam Vital Signs: Temp Pulse Resp BP Pulse Ox 37.1 C 81 18 98/49 L 95 08/12/17 12:11 08/12/17 12:11 08/12/17 12:11 08/12/17 12:11 08/12/17 12:11 Intake & Output 08/11/17 08/12/17 08/13/17 06:59 06:59 06:59 Intake Total 0 2150 793 Output Total 400 1425 560 Balance -400 725 233 Weight 63.8 kg 67 kg Adult Front & Back Image: 1 - Dressings are dry clean and intact. Some mild ecchymosis on the proximal wound. Neurovascular intact distally on the left lower extremity. Expected pain with range of motion. Results Laboratory Results: 08/12/17 04:54 08/12/17 11:33 08/11/17 08/12/17 08/12/17 23:15 04:54 04:54 WBC 8.6 RBC 2.83 L Hgb 9.3 L D Hct 26.5 L MCV 94 MCH 32.8 MCHC 34.9 RDW 12.7 Plt Count 117 L Sodium 138.4 Potassium 4.2 Chloride 108 H Carbon Dioxide 26 Anion Gap 4 L BUN 22 H Creatinine 0.54 Est GFR ( Amer) > 60 Est GFR (Non-Af Amer) > 60 Glucose 112 H Calcium 8.9 Magnesium 1.9 Urine Color MARTÍNEZ Urine Appearance CLOUDY Urine pH 5.0 Ur Specific [place] 1.039 Urine Protein 100 H Urine Glucose (UA) 50 H Urine Ketones TRACE H Urine Blood LARGE H Urine Nitrite NEGATIVE Ur Leukocyte Esterase MODERATE H Urine WBC (Auto) >182 Urine RBC (Auto) >182 08/12/17 11:33 WBC RBC Hgb Hct MCV MCH MCHC RDW Plt Count Sodium 133.0 L Potassium 3.9 Chloride 105 Carbon Dioxide 22 Anion Gap 6 BUN 21 H Creatinine 0.53 Est GFR ( Amer) > 60 Est GFR (Non-Af Amer) > 60 Glucose 161 H Calcium 8.9 Magnesium Urine Color Urine Appearance Urine pH Ur Specific [place] Urine Protein Urine Glucose (UA) Urine Ketones Urine Blood Urine Nitrite Ur Leukocyte Esterase Urine WBC (Auto) Urine RBC (Auto) Impressions: Chest X-Ray 08/10/17 13:27 IMPRESSION: HEART ENLARGED WITHOUT FAILURE. NO OTHER SIGNIFICANT RADIOGRAPHIC FINDING IN THE CHEST. Fluoroscopy 08/11/17 00:00 IMPRESSION: IMAGE(S) OBTAINED DURING PROCEDURE. Hip X-Ray 08/11/17 00:00 IMPRESSION: IMAGE(S) OBTAINED DURING PROCEDURE. Status: Image reviewed by me Assessment & Plan - Diagnosis (1) Fracture, intertrochanteric, left femur Qualifiers: Encounter type: initial encounter Fracture type: closed Fracture alignment: displaced Qualified Code(s): S72.142A - Displaced intertrochanteric fracture of left femur, initial encounter for closed fracture Is this a current diagnosis for this admission?: Yes Plan: Patient is 87-year-old female POD #1 from nailing of left intertrochanteric hip fracture. Continue physical therapy monitor H&H. Recommend transfusion if H&H continues to trend down. Continue pain control Continue DVT prophylaxis Awaiting long-term facility placement
[2017-08-12] MEDS: FERROUS SULFATE 325 MG TABLET PO SCH (18:08)
[2017-08-12] MEDS: RIVAROXABAN 10 MG TABLET PO SCH (18:09)
--- NOTE | 2017-08-12 20:00 | PDOC PROGRESS REPORT ---
Subjective Progress Note for:: 08/12/17 Subjective:: Patient was seen early in the morning. Patient is status post hip surgery day 1. EKG reviewed showed no new changes patient noted to have mild to moderate aortic incompetence and mild to moderate mitral regurgitation with relatively well-preserved LVEF. Patient has been chest pain-free. Reason For Visit: LEFT HIP FRACTURE Physical Exam Vital Signs: Temp Pulse Resp BP Pulse Ox 99.3 F 96 20 112/92 H 97 08/12/17 17:00 08/12/17 17:00 08/12/17 17:00 08/12/17 17:00 08/12/17 17:00 Intake & Output 08/11/17 08/12/17 08/13/17 06:59 06:59 06:59 Intake Total 0 2150 793 Output Total 400 1425 560 Balance -400 725 233 Weight 63.8 kg 67 kg Exam: GENERAL: well-nourished and in no acute distress. Patient is alert but not oriented to place time or person. HEAD: Atraumatic, normocephalic. EYES: Pupils equal round and reactive to light, extraocular movements intact, sclera anicteric, conjunctiva are normal. ENT: TMs normal, nares patent, oropharynx clear without exudates. Moist mucous membranes. No oral ulcerations or bleeding gums noted NECK: supple without lymphadenopathy or JVD. Trachea is central. No cervical or axillary lymphadenopathy noted. Carotids are 2+ LUNGS: Breath sounds bibasilar fine crackles at bases. No significant dullness noted. CHEST: Palpation of chest wall shows no significant chest wall tenderness. HEART: [place] PERSONNEL ANALYST, No PSH, 2/6 SARA aortic area, 1/6 smith systolic murmur mitral area, rubs or gallops. ABDOMEN: Soft, no significant tenderness appreciated, normoactive bowel sounds. No guarding, no rebound. No rigidity noted . No masses appreciated. EXTREMITIES: Pedal pulses are 1-2+, no calf tenderness noted, Trace + pedal edema noted. No clubbing or cyanosis. NEUROLOGICAL: Patient is alert but is not able to participate in neurological exam because of patient's current mental status PSYCH: Patient cannot participate in a neurologic and psych exam because of the patient's current mental status SKIN: No significant ecchymosis, rash, ulcerations or signs of pruritus noted. MUSCULOSKELETAL EXAM: No significant joint swelling noted. Postsurgical changes noted Results Laboratory Results: 08/12/17 04:54 08/12/17 11:33 08/11/17 08/12/17 08/12/17 23:15 04:54 04:54 WBC 8.6 RBC 2.83 L Hgb 9.3 L D Hct 26.5 L MCV 94 MCH 32.8 MCHC 34.9 RDW 12.7 Plt Count 117 L Sodium 138.4 Potassium 4.2 Chloride 108 H Carbon Dioxide 26 Anion Gap 4 L BUN 22 H Creatinine 0.54 Est GFR ( Amer) > 60 Est GFR (Non-Af Amer) > 60 Glucose 112 H Calcium 8.9 Magnesium 1.9 Urine Color MARTÍNEZ Urine Appearance CLOUDY Urine pH 5.0 Ur Specific [place] 1.039 Urine Protein 100 H Urine Glucose (UA) 50 H Urine Ketones TRACE H Urine Blood LARGE H Urine Nitrite NEGATIVE Ur Leukocyte Esterase MODERATE H Urine WBC (Auto) >182 Urine RBC (Auto) >182 08/12/17 11:33 WBC RBC Hgb Hct MCV MCH MCHC RDW Plt Count Sodium 133.0 L Potassium 3.9 Chloride 105 Carbon Dioxide 22 Anion Gap 6 BUN 21 H Creatinine 0.53 Est GFR ( Amer) > 60 Est GFR (Non-Af Amer) > 60 Glucose 161 H Calcium 8.9 Magnesium Urine Color Urine Appearance Urine pH Ur Specific [place] Urine Protein Urine Glucose (UA) Urine Ketones Urine Blood Urine Nitrite Ur Leukocyte Esterase Urine WBC (Auto) Urine RBC (Auto) EKG Comments: Twelve-lead EKG shows sinus rhythm with right bundle branch block pattern. No acute ST-T wave changes noted Impressions: Chest X-Ray 08/10/17 13:27 IMPRESSION: HEART ENLARGED WITHOUT FAILURE. NO OTHER SIGNIFICANT RADIOGRAPHIC FINDING IN THE CHEST. Fluoroscopy 08/11/17 00:00 IMPRESSION: IMAGE(S) OBTAINED DURING PROCEDURE. Hip X-Ray 08/11/17 00:00 IMPRESSION: IMAGE(S) OBTAINED DURING PROCEDURE. Assessment & Plan - Diagnosis (1) Comminuted fracture of left hip Qualifiers: Encounter type: initial encounter Fracture type: closed Qualified Code(s) : S72.092A - Other fracture of head and neck of left femur, initial encounter for closed fracture Is this a current diagnosis for this admission?: Yes (2) HTN (hypertension) Qualifiers: Hypertension type: essential hypertension Qualified Code(s): I10 - Essential (primary) hypertension Is this a current diagnosis for this admission?: Yes (3) Heart murmur Is this a current diagnosis for this admission?: Yes (4) History of CVA with residual deficit Is this a current diagnosis for this admission?: Yes (5) Recurrent falls while walking Is this a current diagnosis for this admission?: Yes (6) Valvular heart disease Is this a current diagnosis for this admission?: Yes - Notes Notes: Patient seems reasonably stable from cardiac standpoint. 2D echo results were reviewed with the patient and her daughter in the room. It shows mild to moderate aortic incompetence and mitral regurgitation. No intervention is needed. Patient is felt to be stable from cardiac standpoint. Will sign off. Please reconsult if needed. - Time Time with patient: 15-25 minutes - CODE STATUS : was discussed, patient remains DO NOT RESUSCITATE. Surrogate decision-maker unchanged. Multiple medical problems were addressed. More than 50% of the time spent coordinating care, discussing management plans with involved caregivers. Management plans discussed with involved personnels. Medical decision making was of moderate complexity, patient's has multiple comorbidities.
[2017-08-13] MEDS: CEFAZOLIN 2 GM/D5W RTU 2 GM/50 ML RTUPB IV SCH ×4 (04:00→20:43)
[2017-08-13 06:46] LABS: HEMATOCRIT 21.9 % (36.0-47.0); MEAN CORPUSCULAR HEMOGLOBIN 32.7 pg (27.0-33.4); MEAN CORPUSCULAR HGB CONC 34.7 g/dL (32.0-36.0); MEAN CORPUSCULAR VOLUME 94 fl (80-97); PLATELET COUNT 130 10^3/uL (150-450); RED BLOOD COUNT 2.32 10^6/uL (3.72-5.28); RED CELL DISTRIBUTION WIDTH 12.7 % (11.5-14.0); WHITE BLOOD COUNT 6.5 10^3/uL (4.0-10.5)
[2017-08-13 06:47] LABS: HEMOGLOBIN 7.6 g/dL (12.0-15.5)
[2017-08-13 06:54] LABS: BLOOD UREA NITROGEN 15 mg/dL (7-20); CALCIUM 9.1 mg/dL (8.4-10.2); GLUCOSE 101 mg/dL (75-110); POTASSIUM 3.6 mmol/L (3.6-5.0)
[2017-08-13 07:08] LABS: ANION GAP 6 (5-19); CARBON DIOXIDE 24 mmol/L (22-30); CHLORIDE 107 mmol/L (98-107); SODIUM 136.7 mmol/L (137-145)
[2017-08-13] MEDS: ASPIRIN 325 MG TABLET PO SCH (09:22)
[2017-08-13] MEDS: GABAPENTIN 300 MG CAPSULE PO SCH ×2 (09:22→21:14)
[2017-08-13] MEDS: DOCUSATE SODIUM 100 MG CAPSULE PO SCH (09:23)
[2017-08-13] MEDS: FERROUS SULFATE 325 MG TABLET PO SCH ×2 (09:23→18:24)
[2017-08-13] MEDS: LOSARTAN POTASSIUM 25 MG TABLET PO SCH (09:24)
[2017-08-13] MEDS: COLLAGENASE CLOSTRIDIUM HIST. OINT 30 GM TOP SCH (09:25)
[2017-08-13] MEDS: FLUTICASONE NASAL SPRAY 50 MCG/SPRY 120 SPRAY/16 GM NASL SCH (09:25)
--- NOTE | 2017-08-13 13:23 | PDOC PROGRESS REPORT ---
Subjective Progress Note for:: 08/13/17 Subjective:: Already participated with therapy today. Patient receiving 1 unit of blood while she is eating her lunch. Reason For Visit: LEFT HIP FRACTURE Physical Exam Vital Signs: Temp Pulse Resp BP Pulse Ox 36.8 C 83 18 104/57 L 99 08/13/17 12:46 08/13/17 12:46 08/13/17 12:46 08/13/17 12:46 08/13/17 12:46 Intake & Output 08/12/17 08/13/17 08/14/17 06:59 06:59 06:59 Intake Total 2150 1193 0 Output Total 1425 1960 Balance 725 -767 0 Weight 67 kg 71.6 kg Adult Front & Back Image: 1 - Incisions are dry clean and intact. Vascularly intact distally. Results Laboratory Results: 08/13/17 05:50 08/13/17 05:50 08/13/17 08/13/17 08/13/17 05:50 05:50 09:13 WBC 6.5 RBC 2.32 L Hgb 7.6 L Hct 21.9 L MCV 94 MCH 32.7 MCHC 34.7 RDW 12.7 Plt Count 130 L Sodium 136.7 L Potassium 3.6 Chloride 107 Carbon Dioxide 24 Anion Gap 6 BUN 15 Creatinine 0.62 Est GFR ( Amer) > 60 Est GFR (Non-Af Amer) > 60 Glucose 101 Calcium 9.1 Magnesium 2.0 Blood Type O POSITIVE Antibody Screen NEGATIVE Impressions: Chest X-Ray 08/10/17 13:27 IMPRESSION: HEART ENLARGED WITHOUT FAILURE. NO OTHER SIGNIFICANT RADIOGRAPHIC FINDING IN THE CHEST. Fluoroscopy 08/11/17 00:00 IMPRESSION: IMAGE(S) OBTAINED DURING PROCEDURE. Hip X-Ray 08/11/17 00:00 IMPRESSION: IMAGE(S) OBTAINED DURING PROCEDURE. Assessment & Plan - Diagnosis (1) Fracture, intertrochanteric, left femur Qualifiers: Encounter type: initial encounter Fracture type: closed Fracture alignment: displaced Qualified Code(s): S72.142A - Displaced intertrochanteric fracture of left femur, initial encounter for closed fracture Is this a current diagnosis for this admission?: Yes Plan: Patient is 87-year-old female POD #2 from cephalo-medullary nailing left hip fracture. We will monitor H&H after transfusion. Continue physical therapy Continue pain control Continue DVT prophylaxis [facility]waiting jail facility [facility]
--- NOTE | 2017-08-13 13:35 | Physician Advisory Note ---
Physician Advisor ProgressNote .: [facility], I have reviewed the medical record for this patient. Physician Advisor Statement: Please consider documenting, if you agree: 1. 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 "Anemia of Acute Blood Loss due to fracture" (prior baseline Hgb 14's) 3. Principal Dx: please list in each note as Dx #1 the main dx reason for hospitalization. Thanks! CK
--- NOTE | 2017-08-13 15:10 | PDOC PROGRESS REPORT ---
Subjective Progress Note for:: 08/13/17 Subjective:: Patient refers that was confused last night. Daughter is at bedside and states that patient does not take Ambien on a regular basis and probably this medication did it. Updated about need to get a blood transfusion. Also made aware that patient was placed on Xarelto for the purpose of DVT prophylaxis and she will be placed on full-strength aspirin due to history of a stroke instead of Plavix to avoid risk of bleeding Review of systems All organ systems evaluated and negative except as in subjective All significant laboratories and diagnostics have been reviewed Reason For Visit: LEFT HIP FRACTURE Physical Exam Vital Signs: Temp Pulse Resp BP Pulse Ox 100.0 F 98 17 123/57 L 92 08/12/17 23:07 08/12/17 23:07 08/12/17 23:07 08/12/17 23:07 08/12/17 23:07 Intake & Output 08/11/17 08/12/17 08/13/17 06:59 06:59 06:59 Intake Total 0 2150 1193 Output Total 400 1425 1960 Balance -400 725 -767 Weight 63.8 kg 67 kg 71.6 kg General appearance: PRESENT: cooperative, obese Head exam: PRESENT: atraumatic, normocephalic Eye exam: PRESENT: conjunctiva pink, EOMI, PERRLA Ear exam: PRESENT: normal external ear exam Mouth exam: PRESENT: moist Neck exam: PRESENT: full ROM. ABSENT: JVD, lymphadenopathy, tenderness Respiratory exam: PRESENT: clear to auscultation radames Cardiovascular exam: PRESENT: RRR, systolic murmur. ABSENT: diastolic murmur Vascular exam: PRESENT: normal capillary refill GI/Abdominal exam: PRESENT: normal bowel sounds. ABSENT: soft, tenderness Extremities exam: PRESENT: full ROM Musculoskeletal exam: ABSENT: ambulatory Neurological exam: PRESENT: alert, awake, oriented to person, oriented to place , oriented to time, other - Mild right-sided weakness Psychiatric exam: PRESENT: appropriate affect, normal mood Skin exam: PRESENT: normal color Results Laboratory Results: 08/12/17 11:33 Sodium 133.0 L Potassium 3.9 Chloride 105 Carbon Dioxide 22 Anion Gap 6 BUN 21 H Creatinine 0.53 Est GFR ( Amer) > 60 Est GFR (Non-Af Amer) > 60 Glucose 161 H Calcium 8.9 Impressions: Chest X-Ray 08/10/17 13:27 IMPRESSION: HEART ENLARGED WITHOUT FAILURE. NO OTHER SIGNIFICANT RADIOGRAPHIC FINDING IN THE CHEST. Fluoroscopy 08/11/17 00:00 IMPRESSION: IMAGE(S) OBTAINED DURING PROCEDURE. Hip X-Ray 08/11/17 00:00 IMPRESSION: IMAGE(S) OBTAINED DURING PROCEDURE. Assessment & Plan - Diagnosis (1) Comminuted fracture of left hip Qualifiers: Encounter type: initial encounter Fracture type: closed Qualified Code(s) : S72.092A - Other fracture of head and neck of left femur, initial encounter for closed fracture Is this a current diagnosis for this admission?: Yes Plan: Had surgery 08/11. Tolerated procedure well except that now had experience anemia of acute blood loss which requires to be transfused (2) Heart murmur Is this a current diagnosis for this admission?: Yes Plan: Long-standing and due to aortic regurgitation. Stable (3) HTN (hypertension) Qualifiers: Hypertension type: essential hypertension Qualified Code(s): I10 - Essential (primary) hypertension Is this a current diagnosis for this admission?: Yes Plan: Will continue holding off outpatient regimen and will consider to restart if improving after blood transfusion (4) Recurrent falls while walking Is this a current diagnosis for this admission?: Yes Plan: Patient has been having frequent falls. She lives by herself. She was made aware that he may get to be dangerous for her to stay by herself. Daughter Is also aware that may be dangerous for patient to stay by herself (5) History of CVA with residual deficit Is this a current diagnosis for this admission?: Yes Plan: Patient has long-standing right-sided hemiparesis. She requires ambulation with a cane which certainly can contribute to her unsteadiness (6) UTI (urinary tract infection) Qualifiers: Hematuria presence: with hematuria Is this a current diagnosis for this admission?: Yes Plan: Will discontinue Levaquin as I am concerned that can contribute to confusion. Patient cefazolin. Will follow up urine culture results (7) Ulcer of right leg Qualifiers: Non-pressure ulcer stage: limited to breakdown of skin Qualified Code(s): L97.911 - Non-pressure chronic ulcer of unspecified part of right lower leg limited to breakdown of skin Is this a current diagnosis for this admission?: Yes Plan: Continue with wound care using Santyl (8) Anemia associated with acute blood loss Is this a current diagnosis for this admission?: Yes Plan: Patient will be transfused 2 units today. Iron was started on 08/12 (9) Confusion Is this a current diagnosis for this admission?: Yes Plan: Will discontinue Levaquin and will decrease Ambien. - Time Time Spent with patient: 15-24 minutes Medications reviewed and adjusted accordingly: Yes Anticipated discharge: Acute Rehab Within: within 72 hours - Inpatient Certification Based on my medical assessment, after consideration of the patient's comorbidities, presenting symptoms, or acuity I expect that the services needed warrant INPATIENT care.: Yes I certify that my determination is in accordance with my understanding of Medicare's requirements for reasonable and necessary INPATIENT services [42 CFR 412.3e].: Yes Medical Necessity: Need Close Monitoring Due to Risk of Patient Decompensation, Need for IV Antibiotics
[2017-08-13] MEDS: RIVAROXABAN 10 MG TABLET PO SCH (18:24)
[2017-08-13] MEDS: OLANZAPINE 2.5 MG TABLET PO SCH (21:14)
[2017-08-14] MEDS: CEFAZOLIN 2 GM/D5W RTU 2 GM/50 ML RTUPB IV SCH (03:12)
[2017-08-14 06:41] LABS: HEMATOCRIT 26.8 % (36.0-47.0); HEMOGLOBIN 9.4 g/dL (12.0-15.5); MEAN CORPUSCULAR HEMOGLOBIN 31.9 pg (27.0-33.4); MEAN CORPUSCULAR HGB CONC 35.2 g/dL (32.0-36.0); MEAN CORPUSCULAR VOLUME 91 fl (80-97); PLATELET COUNT 148 10^3/uL (150-450); RED BLOOD COUNT 2.95 10^6/uL (3.72-5.28); RED CELL DISTRIBUTION WIDTH 14.1 % (11.5-14.0); WHITE BLOOD COUNT 6.6 10^3/uL (4.0-10.5)
[2017-08-14 06:54] LABS: BLOOD UREA NITROGEN 15 mg/dL (7-20); CALCIUM 8.9 mg/dL (8.4-10.2); CARBON DIOXIDE 25 mmol/L (22-30); GLUCOSE 101 mg/dL (75-110); POTASSIUM 3.6 mmol/L (3.6-5.0)
[2017-08-14 07:08] LABS: CHLORIDE 112 mmol/L (98-107); SODIUM 140.8 mmol/L (137-145)
[2017-08-14 07:11] LABS: ANION GAP 4 (5-19)
--- NOTE | 2017-08-14 07:28 | PDOC PROGRESS REPORT ---
Subjective Subjective:: Patient lying in bed comfortably and awake this morning. Daughter at bedside. Daughter states she did have some confusion 2 days ago but notes that has been improving. Slowly progressing with therapy. Reason For Visit: LEFT HIP FRACTURE Physical Exam Vital Signs: Temp Pulse Resp BP Pulse Ox 99.5 F 87 17 140/64 H 98 08/13/17 23:49 08/13/17 23:49 08/13/17 23:49 08/13/17 23:49 08/13/17 23:49 Intake & Output 08/13/17 08/14/17 08/15/17 06:59 06:59 06:59 Intake Total 1193 1920 Output Total 1960 Balance -767 1920 Weight 71.6 kg 71.5 kg Musculoskeletal exam: PRESENT: other - Left hip: Dressing clean/dry/intact no erythema or drainage. No calf tenderness. Intact plantar flexion/dorsiflexion. Results Laboratory Results: 08/14/17 06:30 08/14/17 06:30 08/13/17 08/14/17 08/14/17 09:13 06:30 06:30 WBC 6.6 RBC 2.95 L Hgb 9.4 L Hct 26.8 L MCV 91 MCH 31.9 MCHC 35.2 RDW 14.1 H Plt Count 148 L Sodium 140.8 Potassium 3.6 Chloride 112 H Carbon Dioxide 25 Anion Gap 4 L BUN 15 Creatinine 0.49 L Est GFR ( Amer) > 60 Est GFR (Non-Af Amer) > 60 Glucose 101 Calcium 8.9 Magnesium 2.0 Blood Type O POSITIVE Antibody Screen NEGATIVE Impressions: Chest X-Ray 08/10/17 13:27 IMPRESSION: HEART ENLARGED WITHOUT FAILURE. NO OTHER SIGNIFICANT RADIOGRAPHIC FINDING IN THE CHEST. Fluoroscopy 08/11/17 00:00 IMPRESSION: IMAGE(S) OBTAINED DURING PROCEDURE. Hip X-Ray 08/11/17 00:00 IMPRESSION: IMAGE(S) OBTAINED DURING PROCEDURE. Assessment & Plan - Diagnosis (1) Fracture, intertrochanteric, left femur Qualifiers: Encounter type: initial encounter Fracture type: closed Fracture alignment: displaced Qualified Code(s): S72.142A - Displaced intertrochanteric fracture of left femur, initial encounter for closed fracture Is this a current diagnosis for this admission?: Yes Plan: Status post IM nail left intertrochanteric fracture #1 acute blood loss anemia H&H improved after 2 units of packed red blood cells #2 physical therapy will continue weightbearing #3 DVT prophylaxis have stopped Xarelto given patient's acute blood loss anemia may restart aspirin and Plavix as per hospitalist recommendation. #4 discharge planning: Patient is orthopedically stable to discharge to half-way facility at this point family would prefer to go to [place] where she is closer to her daughter. I feel this is reasonable given patient's age and increased family support in this situation
[2017-08-14] MEDS ORDERED: BISACODYL 10 MG SUPP.RECT PR ONE (08:44)
[2017-08-14] MEDS: DOCUSATE SODIUM 100 MG CAPSULE PO SCH (09:53)
[2017-08-14] MEDS: ASPIRIN 325 MG TABLET PO SCH (09:53)
[2017-08-14] MEDS: FERROUS SULFATE 325 MG TABLET PO SCH ×2 (09:53→17:51)
[2017-08-14] MEDS: COLLAGENASE CLOSTRIDIUM HIST. OINT 30 GM TOP SCH (09:53)
[2017-08-14] MEDS: FLUTICASONE NASAL SPRAY 50 MCG/SPRY 120 SPRAY/16 GM NASL SCH (09:53)
[2017-08-14] MEDS: LOSARTAN POTASSIUM 25 MG TABLET PO SCH (09:53)
[2017-08-14] MEDS: GABAPENTIN 300 MG CAPSULE PO SCH ×2 (09:53→23:32)
[2017-08-14] MEDS: OXYCODONE-ACETAMINOPHEN 5-325 MG TABLET PO PRN (09:54)
[2017-08-14] MEDS: POLYETHYLENE GLYCOL 3350 POWDER 17 GM/1 PACKET PO SCH (09:54)
--- NOTE | 2017-08-14 14:27 | PDOC PROGRESS REPORT ---
Subjective Progress Note for:: 08/14/17 Subjective:: Patient refers that she feels good today. Had an uneventful night last night. Daughter is at bedside and she is to make arrangements for patient to go to [facility]hab in [facility]. Patient still not able to have a good bowel movement Review of systems All organ systems evaluated and negative except as in subjective All significant laboratories and diagnostics have been reviewed Reason For Visit: LEFT HIP FRACTURE Physical Exam Vital Signs: Temp Pulse Resp BP Pulse Ox 99.5 F 87 17 140/64 H 98 08/13/17 23:49 08/13/17 23:49 08/13/17 23:49 08/13/17 23:49 08/13/17 23:49 Intake & Output 08/13/17 08/14/17 08/15/17 06:59 06:59 06:59 Intake Total 1193 1920 Output Total 1960 Balance -767 1920 Weight 71.6 kg 71.5 kg General appearance: PRESENT: cooperative, obese Head exam: PRESENT: atraumatic, normocephalic Eye exam: PRESENT: conjunctiva pink, EOMI, PERRLA Ear exam: PRESENT: normal external ear exam Mouth exam: PRESENT: moist Neck exam: PRESENT: full ROM. ABSENT: JVD, lymphadenopathy, tenderness Respiratory exam: PRESENT: clear to auscultation radames Cardiovascular exam: PRESENT: RRR. ABSENT: diastolic murmur, systolic murmur Vascular exam: PRESENT: normal capillary refill GI/Abdominal exam: PRESENT: normal bowel sounds, soft. ABSENT: tenderness Extremities exam: PRESENT: pedal edema Musculoskeletal exam: PRESENT: ambulatory Neurological exam: PRESENT: alert, awake, oriented to person, oriented to place , oriented to time, oriented to situation, CN II-XII grossly intact Psychiatric exam: PRESENT: appropriate affect, normal mood Skin exam: PRESENT: normal color Results Laboratory Results: 08/14/17 06:30 08/14/17 06:30 08/13/17 08/14/17 08/14/17 09:13 06:30 06:30 WBC 6.6 RBC 2.95 L Hgb 9.4 L Hct 26.8 L MCV 91 MCH 31.9 MCHC 35.2 RDW 14.1 H Plt Count 148 L Sodium 140.8 Potassium 3.6 Chloride 112 H Carbon Dioxide 25 Anion Gap 4 L BUN 15 Creatinine 0.49 L Est GFR ( Amer) > 60 Est GFR (Non-Af Amer) > 60 Glucose 101 Calcium 8.9 Magnesium 2.0 Blood Type O POSITIVE Antibody Screen NEGATIVE Impressions: Chest X-Ray 08/10/17 13:27 IMPRESSION: HEART ENLARGED WITHOUT FAILURE. NO OTHER SIGNIFICANT RADIOGRAPHIC FINDING IN THE CHEST. Fluoroscopy 08/11/17 00:00 IMPRESSION: IMAGE(S) OBTAINED DURING PROCEDURE. Hip X-Ray 08/11/17 00:00 IMPRESSION: IMAGE(S) OBTAINED DURING PROCEDURE. Assessment & Plan - Diagnosis (1) Comminuted fracture of left hip Qualifiers: Encounter type: initial encounter Fracture type: closed Qualified Code(s) : S72.092A - Other fracture of head and neck of left femur, initial encounter for closed fracture Is this a current diagnosis for this admission?: Yes Plan: Had surgery 08/11. Tolerated procedure well except that now had experience anemia of acute blood loss which required transfusion. Patient placed on Xarelto for DVT prophylaxis. Family had made arrangements for patient to go to [facility] rehab in [place]. Patient to be discharged on at 8 AM to be transported to [facility] (2) Heart murmur Is this a current diagnosis for this admission?: Yes Plan: Long-standing and due to aortic regurgitation. Stable (3) HTN (hypertension) Qualifiers: Hypertension type: essential hypertension Qualified Code(s): I10 - Essential (primary) hypertension Is this a current diagnosis for this admission?: Yes Plan: Continue losartan as outpatient (4) Recurrent falls while walking Is this a current diagnosis for this admission?: Yes Plan: Patient has been having frequent falls. She lives by herself. She was made aware that he may get to be dangerous for her to stay by herself. Daughter Is also aware that may be dangerous for patient to stay by herself (5) History of CVA with residual deficit Is this a current diagnosis for this admission?: Yes Plan: Patient has long-standing right-sided hemiparesis. She requires ambulation with a cane which certainly can contribute to her unsteadiness. Took patient off Plavix since was going to be on Xarelto for DVT prophylaxis. Place patient on enteric-coated aspirin 325 mg p.o. daily (6) UTI (urinary tract infection) Qualifiers: Hematuria presence: with hematuria Is this a current diagnosis for this admission?: Yes Plan: Patient had been on cefazolin after surgery and had been discontinued. Will place patient on Ceftin. Recommend to follow-up official report of urine culture (7) Ulcer of right leg Qualifiers: Non-pressure ulcer stage: limited to breakdown of skin Qualified Code(s): L97.911 - Non-pressure chronic ulcer of unspecified part of right lower leg limited to breakdown of skin Is this a current diagnosis for this admission?: Yes Plan: Continue with wound care using Santyl (8) Anemia associated with acute blood loss Is this a current diagnosis for this admission?: Yes Plan: Improved after 2 units of packed red blood cells transfuse on 08/13. Iron was started on 08/12 (9) Confusion Is this a current diagnosis for this admission?: Yes Plan: Resolved - Time Time Spent with patient: 15-24 minutes Medications reviewed and adjusted accordingly: Yes Anticipated discharge: SNF Within: within 48 hours - Inpatient Certification Based on my medical assessment, after consideration of the patient's comorbidities, presenting symptoms, or acuity I expect that the services needed warrant INPATIENT care.: Yes I certify that my determination is in accordance with my understanding of Medicare's requirements for reasonable and necessary INPATIENT services [42 CFR 412.3e].: Yes Medical Necessity: Need Close Monitoring Due to Risk of Patient Decompensation
[2017-08-14] MEDS ORDERED: CEFUROXIME 500 MG TABLET PO ONE (15:30)
[2017-08-14] MEDS ORDERED: RIVAROXABAN 10 MG TABLET PO ONE (15:30)
[2017-08-14] MEDS: TOLTERODINE TARTRATE 1 MG TABLET PO SCH (23:32)
[2017-08-14] MEDS: LACTULOSE SYRUP 20 GM/30 ML UDCUP PO SCH (23:32)
[2017-08-14] MEDS: CEFUROXIME 500 MG TABLET PO SCH (23:32)
[2017-08-14] MEDS: OLANZAPINE 2.5 MG TABLET PO SCH (23:33)
[2017-08-15] MEDS: TOLTERODINE TARTRATE 1 MG TABLET PO SCH ×2 (09:46→21:16)
[2017-08-15] MEDS: DOCUSATE SODIUM 100 MG CAPSULE PO SCH (09:46)
[2017-08-15] MEDS: FERROUS SULFATE 325 MG TABLET PO SCH ×2 (09:46→18:03)
[2017-08-15] MEDS: LOSARTAN POTASSIUM 25 MG TABLET PO SCH (09:46)
[2017-08-15] MEDS: FLUTICASONE NASAL SPRAY 50 MCG/SPRY 120 SPRAY/16 GM NASL SCH (09:47)
[2017-08-15] MEDS: ASPIRIN 325 MG TABLET PO SCH (09:47)
[2017-08-15] MEDS: COLLAGENASE CLOSTRIDIUM HIST. OINT 30 GM TOP SCH (09:47)
[2017-08-15] MEDS: CEFUROXIME 500 MG TABLET PO SCH ×2 (09:47→21:16)
[2017-08-15] MEDS: OXYCODONE-ACETAMINOPHEN 5-325 MG TABLET PO PRN (09:47)
[2017-08-15] MEDS: POLYETHYLENE GLYCOL 3350 POWDER 17 GM/1 PACKET PO SCH (09:47)
[2017-08-15] MEDS: GABAPENTIN 300 MG CAPSULE PO SCH ×2 (09:47→21:17)
[2017-08-15] MEDS ORDERED: (PENDING PHARMACY ID) (Tolterodine Tartrate [Detrol La] 4 MG) PO SCH (10:00)
[2017-08-15] MEDS ORDERED: NA PHOS,M-B/NA PHOS,DI-BA (ADULT) 133 ML ENEMA PR PRN (13:07)
--- NOTE | 2017-08-15 13:07 | PDOC PROGRESS REPORT ---
Subjective Progress Note for:: 08/15/17 Subjective:: reports no BM since this past Thursday, very unusual for her and doesn't routinely have to treat at home. otherwise states her pain is well controlled and continues to progress with PT, hoping for transfer to [facility] for rehab tomorrow. denies chest pain, fever, chills, n/v, abdominal pain, LO, dizziness, palpitations. ROS: all systems reviewed, see above, remaining systems negative. Reason For Visit: LEFT HIP FRACTURE Physical Exam Vital Signs: Temp Pulse Resp BP Pulse Ox 98.5 F 79 18 112/62 92 08/15/17 11:27 08/15/17 11:27 08/15/17 11:27 08/15/17 11:27 08/15/17 11:27 Intake & Output 08/14/17 08/15/17 08/16/17 06:59 06:59 06:59 Intake Total 1920 940 Output Total 1200 Balance 1920 -260 Weight 71.5 kg 71.5 kg General appearance: PRESENT: no acute distress, well-developed, well-nourished Head exam: PRESENT: atraumatic, normocephalic Eye exam: ABSENT: conjunctival injection, scleral icterus Mouth exam: PRESENT: moist, neck supple Respiratory exam: PRESENT: clear to auscultation radames. ABSENT: accessory muscle use, rhonchi, wheezes Cardiovascular exam: PRESENT: RRR, systolic murmur GI/Abdominal exam: PRESENT: hypoactive bowel sounds, soft, other - fullness to palpation, probably stool filled loops of bowel evident on palpation. ABSENT: tenderness Extremities exam: ABSENT: calf tenderness, pedal edema Musculoskeletal exam: PRESENT: other - wound is c/d/i Neurological exam: PRESENT: alert, awake, oriented to person, oriented to place , oriented to time Psychiatric exam: PRESENT: appropriate affect, normal mood Skin exam: PRESENT: warm Results Laboratory Results: 08/14/17 06:30 08/14/17 06:30 08/11/17 23:15 Catheterized Urine Urine Culture - Final Proteus Mirabilis Impressions: Chest X-Ray 08/10/17 13:27 IMPRESSION: HEART ENLARGED WITHOUT FAILURE. NO OTHER SIGNIFICANT RADIOGRAPHIC FINDING IN THE CHEST. Fluoroscopy 08/11/17 00:00 IMPRESSION: IMAGE(S) OBTAINED DURING PROCEDURE. Hip X-Ray 08/11/17 00:00 IMPRESSION: IMAGE(S) OBTAINED DURING PROCEDURE. Status: Imported from PACS Assessment & Plan - Diagnosis (1) Constipation Qualifiers: Constipation type: drug induced constipation Qualified Code(s): K59.03 - Drug induced constipation Is this a current diagnosis for this admission?: Yes Plan: probably related to poor oral intake compounded by narcotic use for hip fracture ; continue aggressive bowel regimen. (2) Anemia associated with acute blood loss Is this a current diagnosis for this admission?: Yes Plan: stable, no further blood loss evident. likely due to long bone fracture and asct'd blood loss, s/p 2 units of PRBCs and post transfusion good response (3) Comminuted fracture of left hip Qualifiers: Encounter type: initial encounter Fracture type: closed Qualified Code(s) : S72.092A - Other fracture of head and neck of left femur, initial encounter for closed fracture Is this a current diagnosis for this admission?: Yes Plan: s/p surgical repair; wound care, weight bearing and PT orders per surgery. plan for d/c to rehab in am (5) HTN (hypertension) Qualifiers: Hypertension type: essential hypertension Qualified Code(s): I10 - Essential (primary) hypertension Is this a current diagnosis for this admission?: Yes Plan: fluctuating but overall trend is okay. continue current care. (6) History of CVA with residual deficit Is this a current diagnosis for this admission?: Yes Plan: stable and normally ambulates with cane. Rt sided mild hemiplegia (7) UTI (urinary tract infection) Qualifiers: Hematuria presence: with hematuria Is this a current diagnosis for this admission?: Yes Plan: 2/2 Proteus, pansens, continue course of ceftin. (8) Ulcer of right leg Qualifiers: Non-pressure ulcer stage: limited to breakdown of skin Qualified Code(s): L97.911 - Non-pressure chronic ulcer of unspecified part of right lower leg limited to breakdown of skin Is this a current diagnosis for this admission?: Yes Plan: continue topical care - Time Time Spent with patient: 35 or more minutes Medications reviewed and adjusted accordingly: Yes Anticipated discharge: SNF Within: within 24 hours
--- NOTE | 2017-08-15 13:12 | PDOC PROGRESS REPORT ---
Subjective Subjective:: Patient lying in bed comfortably. Daughter at bedside. Daughter states she did have some confusion at night but this is improving.. Slowly progressing with therapy. Reason For Visit: LEFT HIP FRACTURE Physical Exam Vital Signs: Temp Pulse Resp BP Pulse Ox 98.5 F 79 18 112/62 92 08/15/17 11:27 08/15/17 11:27 08/15/17 11:27 08/15/17 11:27 08/15/17 11:27 Intake & Output 08/14/17 08/15/17 08/16/17 06:59 06:59 06:59 Intake Total 1920 940 Output Total 1200 Balance 1920 -260 Weight 71.5 kg 71.5 kg Musculoskeletal exam: PRESENT: other - Left hip: Dressing clean/dry/intact no erythema or drainage. Intact plantar flexion/dorsiflexion. No calf tenderness. Minimal thigh swelling Results Laboratory Results: 08/14/17 06:30 08/14/17 06:30 08/11/17 23:15 Catheterized Urine Urine Culture - Final Proteus Mirabilis Impressions: Chest X-Ray 08/10/17 13:27 IMPRESSION: HEART ENLARGED WITHOUT FAILURE. NO OTHER SIGNIFICANT RADIOGRAPHIC FINDING IN THE CHEST. Fluoroscopy 08/11/17 00:00 IMPRESSION: IMAGE(S) OBTAINED DURING PROCEDURE. Hip X-Ray 08/11/17 00:00 IMPRESSION: IMAGE(S) OBTAINED DURING PROCEDURE. Assessment & Plan - Diagnosis (1) Fracture, intertrochanteric, left femur Qualifiers: Encounter type: initial encounter Fracture type: closed Fracture alignment: displaced Qualified Code(s): S72.142A - Displaced intertrochanteric fracture of left femur, initial encounter for closed fracture Is this a current diagnosis for this admission?: Yes Plan: Status post IM nail left intertrochanteric fracture #1 acute blood loss anemia H&H improved after 2 units of packed red blood cells #2 physical therapy will continue weightbearing #3 DVT prophylaxis have stopped Xarelto given patient's acute blood loss anemia may restart aspirin and Plavix as per hospitalist recommendation. #4 discharge planning: Patient is orthopedically stable to discharge to residential facility at this point family would prefer to go to [place] where she is closer to her daughter. I feel this is reasonable given patient's age and increased family support in this situation plan for transfer on 08/16/17
[2017-08-15 13:43] LABS: HEMATOCRIT 29.1 % (36.0-47.0); HEMOGLOBIN 10.2 g/dL (12.0-15.5); MEAN CORPUSCULAR HEMOGLOBIN 32.2 pg (27.0-33.4); MEAN CORPUSCULAR HGB CONC 35.2 g/dL (32.0-36.0); MEAN CORPUSCULAR VOLUME 92 fl (80-97); PLATELET COUNT 199 10^3/uL (150-450); RED BLOOD COUNT 3.18 10^6/uL (3.72-5.28); RED CELL DISTRIBUTION WIDTH 14.2 % (11.5-14.0); WHITE BLOOD COUNT 5.6 10^3/uL (4.0-10.5)
[2017-08-15] MEDS ORDERED: MAGNESIUM CITRATE 296 ML BOTTLE PO ONE (13:45)
[2017-08-15] MEDS ORDERED: RIVAROXABAN 10 MG TABLET PO SCH (17:00)
[2017-08-15] MEDS: LACTULOSE SYRUP 20 GM/30 ML UDCUP PO SCH (21:17)
[2017-08-15] MEDS: OLANZAPINE 2.5 MG TABLET PO SCH (21:17)
[2017-08-16 00:52] VITALS: BP 150/86
--- NOTE | 2017-08-16 08:05 | PDOC TRANSFER SUMMARY ---
General - Admit/Disc Date/PCP Admission Date/Primary Care Provider: 08/10/17 14:17 BRUCE AYALA MD Discharge Date: 08/16/17 - Discharge Diagnosis (1) Comminuted fracture of left hip Is this a current diagnosis for this admission?: Yes Summary: s/p ORIF, wound care and weight bearing/PT orders per ortho (2) Constipation Is this a current diagnosis for this admission?: Yes Summary: resolved with aggressive bowel regimen, continue same per facility protocol (3) Anemia associated with acute blood loss Is this a current diagnosis for this admission?: Yes Summary: 2/2 long bone fracture and surgery, s/p 2 units PRBCs with no further evidence of blood loss and appropriate response to H/H. (4) HTN (hypertension) Is this a current diagnosis for this admission?: Yes Summary: well controlled on current regimen; continue same and f/u with PCP in 1-2 wks for dose adjustment (5) History of CVA with residual deficit Is this a current diagnosis for this admission?: Yes Summary: mild Rt hemiplegia that increases her risk for further falls. (6) UTI (urinary tract infection) Is this a current diagnosis for this admission?: Yes Summary: 2/2 pansens Proteus, continue another 7d ceftin then off (7) Ulcer of right leg Is this a current diagnosis for this admission?: Yes Summary: improving with topical care; continue wound care at facility per protocol (8) Do not resuscitate Is this a current diagnosis for this admission?: Yes - Additional Information Resuscitation Status: Do Not Resuscitate Discharge Diet: Cardiac Discharge Activity: Activity As Tolerated, Slowly Increase Activity, Supervised Activity Prescriptions: Cefuroxime Axetil [Ceftin 500 mg Tablet] 500 mg PO Q12 7 Days #14 tablet Oxycodone HCl/Acetaminophen [Percocet 5-325 mg Tablet] 1 tab PO Q4HP PRN #14 tablet PRN Reason: Rivaroxaban [Xarelto 10 mg Tablet] 10 mg PO DAILY #1 tablet Home Medications: Gabapentin [Neurontin 300 mg Capsule] 300 mg PO DAILY 08/10/17 Gabapentin [Neurontin 300 mg Capsule] 600 mg PO QHS 08/10/17 Losartan Potassium [Cozaar 25 mg Tablet] 25 mg PO DAILY 08/10/17 Tolterodine Tartrate [Detrol LA] 4 mg PO DAILY 08/10/17 Aspirin [Aspirin 325 mg Tablet] 325 mg PO DAILY tablet 08/14/17 Collagenase Clostridium Hist. [Santyl Ointment 30 gm] 1 applic TOP DAILY tube 08/14/17 Ferrous Sulfate [Feosol 325 mg Tablet] 325 mg PO BIDPCBS tablet 08/14/17 Lactulose [Cephulac Syrup 20 gm/30 ml Udcup] 20 gm PO QHS udc 08/14/17 Polyethylene Glycol 3350 [Miralax Powder 17 gm/Packet] 17 gm PO DAILY powd.pack 08/14/17 Rivaroxaban [Xarelto 10 mg Tablet] 10 mg PO DAILY #1 tablet 08/14/17 Cefuroxime Axetil [Ceftin 500 mg Tablet] 500 mg PO Q12 7 Days #14 tablet Oxycodone HCl/Acetaminophen [Percocet 5-325 mg Tablet] 1 tab PO Q4HP PRN #14 tablet 08/16/17 History of Present Illness Admission Date/PCP: 08/10/17 14:17 BRUCE AYALA MD Patient complains of: Patient complains of: Pain in left hip after falling History of Present Illness: History of Present Illness: ALISHA OSORIO is a 87 year old female arrived To ED via ambulance. Patient states that she has been having fall spells. The last episode was last week and she ate her face. Had been falling backwards. Today she fell and afterwards was having problems ambulating. Luckily she had her life alert. Patient lives by herself. She has a history of a stroke back in . After the stroke she has been having some right-sided weakness and uses a cane. Patient admits as to having a history of high blood pressure. She denies myocardial infarction or stroke. Her children are spread throughout. There is 1 in [place], a second 1 in [facility] and the third 1 in [facility]. Patient wishes to be DNR. Patient was evaluated in emergency room and found to have a left hip fracture. Dr. Moore was made aware. Our service was contacted for further management Hospital Course Hospital Course: admitted to hospital and cleared for surgery after cardiology consult and echo to evaluate her chronic murmur; successfully underwent ORIF per ortho surgery without complication and has been progressing with PT as expected. she was noted to have UTI from Proteus that is susceptible to all abx and should continue ceftin for another 7d then off, no sequelae from the UTI otherwise. her bowels were slow to recover from the anesthesia and pain meds but she did have 2 BMs in the last 24 hrs after a rather aggressive bowel regimen. at this point she is hemodynamically stable for transport to [facility] in [place] for ongoing rehab; arrangements made for transport and she is ready to go. Physical Exam Vital Signs: Temp Pulse Resp BP Pulse Ox 99.6 F 84 15 150/86 H 94 08/15/17 23:13 08/15/17 23:13 08/15/17 23:13 08/15/17 23:13 08/15/17 23:13 Intake & Output 08/15/17 08/16/17 08/17/17 06:59 06:59 06:59 Intake Total 940 755 Output Total 1200 400 Balance -260 355 Weight 71.5 kg 71.5 kg General appearance: PRESENT: no acute distress, well-developed, well-nourished Head exam: PRESENT: atraumatic, normocephalic Eye exam: PRESENT: EOMI. ABSENT: scleral icterus Mouth exam: PRESENT: moist, neck supple Respiratory exam: PRESENT: clear to auscultation radames. ABSENT: accessory muscle use, rhonchi, wheezes Cardiovascular exam: PRESENT: RRR, systolic murmur Pulses: PRESENT: normal radial pulses GI/Abdominal exam: PRESENT: normal bowel sounds, soft. ABSENT: tenderness Extremities exam: PRESENT: pedal edema - non pitting. ABSENT: calf tenderness Neurological exam: PRESENT: alert, awake, oriented to person, oriented to place , oriented to time, oriented to situation Psychiatric exam: PRESENT: appropriate affect, normal mood Skin exam: PRESENT: other - surgical wound is c/d/i shallow ulcer/skin tear Rt ankle - non purulent, no erythema Results Laboratory Results: 08/15/17 13:25 08/14/17 06:30 08/15/17 13:25 WBC 5.6 RBC 3.18 L Hgb 10.2 L Hct 29.1 L MCV 92 MCH 32.2 MCHC 35.2 RDW 14.2 H Plt Count 199 08/11/17 23:15 Catheterized Urine Urine Culture - Final Proteus Mirabilis Impressions: Chest X-Ray 08/10/17 13:27 IMPRESSION: HEART ENLARGED WITHOUT FAILURE. NO OTHER SIGNIFICANT RADIOGRAPHIC FINDING IN THE CHEST. Fluoroscopy 08/11/17 00:00 IMPRESSION: IMAGE(S) OBTAINED DURING PROCEDURE. Hip X-Ray 08/11/17 00:00 IMPRESSION: IMAGE(S) OBTAINED DURING PROCEDURE. Transfer Plan - Disposition Transfer Plan: to [facility] for ongoing rehab; f/u with PCP of choice in 1-2 wks for routine hosp f/u; f/u with ortho as instructed - Time Spent with Patient Time spent with patient: Greater than 30 Minutes Qualifiers PATEINT BEING DISCHARGED WITH ANY OF THE FOLLOWING DIAGNOSIS?: No VTE patient discharged on overlapping Therapy?: Yes
[2017-08-16] MEDS: OXYCODONE-ACETAMINOPHEN 5-325 MG TABLET PO PRN (08:10)
== END 2017-08-16 08:10 | DRG 481 ==
LOC: ER 11:14 → EH 14:17 → 4W 08-11 03:02
PROVIDERS: ADMIT Emergency Medicine; ATTEND Emergency Medicine
PROC: 0QS736Z Reposition Left Upper Femur with Intramedullary Internal Fixation Device, Percutaneous Approach (ICD-10-PCS; principal; 2017-08-11 16:15)
PROC: 30233N1 Transfusion of Nonautologous Red Blood Cells into Peripheral Vein, Percutaneous Approach (ICD-10-PCS; 2017-08-13)
DX: S72.142A Displaced intertrochanteric fracture of left femur, initial encounter for closed fracture (principal); I69.351 Hemiplegia and hemiparesis following cerebral infarction affecting right dominant side; L97.911 Non-pressure chronic ulcer of unspecified part of right lower leg limited to breakdown of skin; N39.0 Urinary tract infection, site not specified; D62 Acute posthemorrhagic anemia; K59.03 Drug induced constipation; W18.30XA Fall on same level, unspecified, initial encounter; Z91.81 History of falling; Y92.009 Unspecified place in unspecified non-institutional (private) residence as the place of occurrence of the external cause; E78.5 Hyperlipidemia, unspecified; I73.9 Peripheral vascular disease, unspecified; I10 Essential (primary) hypertension; I35.9 Nonrheumatic aortic valve disorder, unspecified; R01.1 Cardiac murmur, unspecified; M19.90 Unspecified osteoarthritis, unspecified site; Z60.2 Problems related to living alone; Z90.49 Acquired absence of other specified parts of digestive tract; Z90.710 Acquired absence of both cervix and uterus; Z96.653 Presence of artificial knee joint, bilateral; Z66 Do not resuscitate; Z88.2 Allergy status to sulfonamides
CPT/HCPCS: 01230; 36415; 36430; 71045; 80048; 80053; 81001; 83735; 85025; 85027; 86850; 86900; 86901; 86920; 87086; 87088; 87186; 93005; 93010; 93306; 94799; 96374; 99285; G8978-GP; G8979-GP; G8987-GO; G8988-GO; J0690; J1170; J1956; J2405; J2704; J3010; J3490; J7030; P9016